=== PATIENT | female | born 1980 | race Caucasian/White ===

== ENCOUNTER 2024-01-20 17:55 | Inpatient (IN) | payer MEDICAID, SELFPAY ==
[2024-01-20] VITALS (15 sets, daily range): BP systolic 41–150; BP diastolic 24–105; PULSE 89–155; RESP 16–18; TEMP 36.3; O2SAT 91–93
--- NOTE | 2024-01-20 17:45 | RT.EKG_ITS ---
APPROVED REPORT Exam: Resting ECG Reason for Exam: sob Patient Location: E HR:95 bpm ECG Measurements Heart Rate 95 AXIS TN 136 P 69 QRSd 93 QRS -12 QT 413 T 26 QTc 521 Conclusion Sinus rhythm 95 normal axis no stemi prolong QTC 521
--- NOTE | 2024-01-20 18:15 | DI.RAD_ITS ---
Exam(s) XR CHEST 2V PA LATERAL EXAM: XR CHEST 2V PA LATERAL CLINICAL HISTORY: COUGH TECHNIQUE: 2D digital imaging was performed. Two views. COMPARISON: No exams were available for comparison FINDINGS: HEART: Normal size. Aorta: Not dilated. PULMONARY VASCULATURE: Normal. MEDIASTINUM: Unremarkable. LUNGS: Clear. PLEURAL SPACE: No pleural effusion or pneumothorax. BONE:Unremarkable for age. SOFT TISSUES: Surgical clips in the left lower neck. IMPRESSION: No acute abnormality. DATA REPOSITORY: RADIATION DOSE DELIVERED:
[2024-01-20 19:39] LABS: Abs Immature Grans 0.11 10^3/uL (0.0-0.06); Absolute Eosinophil Count 0.11 10^3/uL (0.0-0.7); Absolute Monocyte Count 1.19 10^3/uL (0.1-0.8); Basophils % 0.7 %; Eosinophils % 0.9 %; HCT 50.4 % (36.0-46.0); HGB 16.7 g/dL (11.2-15.7); Immature Grans % 0.9 %; Lymphocytes % 11.5 %; MCHC 33.1 % (32.0-36.0); MCV 100 fL (80-95); MPV 9.5 fL (8.0-11.0); Monocytes % 9.7 %; Neutrophils % 76.3 %; Platelet Count 275 10^3/uL (130-400); RBC 5.06 10^6/uL (3.93-5.22); RDW 13.7 % (11.7-14.6); RDW-SD 50.2 fL; WBC 12.22 10^3/uL (4.4-10.8)
[2024-01-20 19:40] LABS: Absolute Basophil Count 0.09 10^3/uL (0.0-0.2); Absolute Lymphocyte Count 1.41 10^3/uL (1.2-3.4); Absolute Neutrophil Count 9.32 10^3/uL (1.2-6.7)
[2024-01-20 19:41] LABS: ESR 10 mm/hr (0-20)
[2024-01-20 20:02] LABS: ALT 33 U/L (14-59); AST 33 U/L (15-37); Albumin 3.3 g/dL (3.4-5.0); Alkaline Phosphatase 239 U/L (46-116); Anion Gap 15.2 mmol/L (3-11); BUN 9 mg/dL (7-18); Bilirubin, Total 1.65 mg/dL (0.2-1.0); C-Reactive Protein 10.82 mg/dL (<or=0.5); CO2 22.8 mmol/L (21.0-32.0); Calcium 9.8 mg/dL (8.5-10.1); Chloride 98 mmol/L (98-107); Glucose 105 mg/dL (74-106); Sodium 136 mmol/L (136-145); Total Protein 8.4 g/dL (6.4-8.2)
[2024-01-20 20:16] LABS: Procalcitonin < 0.10 ng/mL
[2024-01-20] MEDS: diazePAM 5 MG TAB PO (21:17)
[2024-01-20] MEDS: CEFEPIME 2 GM in Normal Saline 100 ML IVPB (21:18)
[2024-01-20 21:46] LABS: ETHANOL BLOOD < 3.0 mg/dL (<10)
--- NOTE | 2024-01-20 22:45 | W.PM.HP.N ---
Date of service: 01/20/24 Time of Service: 22:45 Assessment and Plan Assessment and plan (1) Cellulitis of right lower extremity: Start date: 01/20/24 Status: Acute Assessment and plan: This is a 43-year-old lady recently moved to [place] who has chronic right leg ulcers from an acute DVT with swelling in 2020. She does supplement Unna boots and has not been changing her bandages for weeks. She presented with a very odiferous wound with multiple ulcerations especially over her medial leg and ankle with no swelling or increased warmth but slight erythema. She was initiated on IV antibiotic therapy after blood cultures and will continue wound care. Dr Hill was consulted for surgical evaluation. She will probably does not need wound debridement. 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 She is supposed to be on anticoagulation because of her DVT which was unprovoked but has stopped this over the last several months. Venous Doppler will be performed over her right lower extremity and she should consider reinitiation of anticoagulation therapy with case management to help with her medical care and ability to/medication along with medical care locally. She will continue on IV antibiotic therapy until she wound appears improved and can be converted to oral antibiotics for completion of therapy. She is a full code. (2) Alcohol abuse, daily use: Status: Chronic Assessment and plan: CIWA protocol with oral Ativan. (3) DVT (deep venous thrombosis): Status: Chronic Assessment and plan: Unprovoked in 2020 with chronic anticoagulation initiated but not continued by patient. Venous ultrasound of the right lower extremity and DVT prophylaxis with subcu Lovenox considering oral anticoagulation therapy chronically. He would be a candidate for Eliquis may have a problem for this unless her medical insurance is updated by the care management team. This should be done prior to discharge. 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 (5) Depression: Status: Chronic Assessment and plan: Patient does drink 5 beers daily and is coping poorly with her social situation. She is not on medical therapy. She does have increased anxiety. Is not manifesting suicidal ideation but is neglectful of her health care. Established with local PCP and this should be addressed with possible treatment. Qualifiers: Depression Type: major depressive disorder Major depression recurrence: recurrent Active/Remission status: currently active Major depression episode severity: moderate Qualified Code(s): F33.1 - Major depressive disorder, recurrent, moderate History of Present Illness History of Present Illness Chief Complaint: Wound right lower leg with strong odor. Narrative: This is a 43-year-old female patient who recently moved from [place], after an abrupt separation from her partner to [place] now living with her second cousin and originally being from [place]. She has a chronic ulcer over her right lower extremity below the knee after a DVT in 2019. She was anticoagulation up to the recent months but has not been taking care of herself and not seeing her usual medical care in [place]. She has been using Unna boots that she would self apply since 2019. During her chaotic moved she had been reapplying Unna boot material over the wound because of wetness and oozing. She has not changed her Unna boot for weeks. The ED physician evaluated her for a presentation of shortness of breath but her main complaint is her right lower leg with a the wound which is odiferous and moist with the old bandage. It is only tender to touch and not bleeding or having significant warmth or erythema. She is not diabetic. She does drink alcohol daily at 5 beers a day. She admits to skin changes over her right lower extremity after the DVT with atrophy of the skin and ending with hair loss. He has a previous history of thoracic outlet syndrome over her left upper extremity with swelling of the arm in 2018 prompting surgery which resulted in eventual loss of her left fourth finger amputated at the MCP secondary to ischemia. Upon presentation, the patient had a very strong odor coming from her right leg with a wrappings dirty and moist and many layers were cut off with odiferous wounds cleansed and dressed again with iodoform gauze and loose wrapping. She had left [place] because of this wound and smell according to the ED physician and was prompted by the person she is living with now to be seen today because of the smell of the wound. The patient has been tearful and very anxious about being seen by the ED physician and tearful during our conversation. She was initiated on IV cefepime and vancomycin therapy because of the appearance of the wound with the elevated WBC and CRP. She had no fever or significant warmth or erythema and only tenderness over her wound. Surgical consultation was obtained and Dr. Hill did see the patient's wounds unwrapped when she was admitted to [facility]. He did advise on wound care and agreed with IV antibiotic therapy initially though she may be able to be converted to oral therapy quickly if responding. He would be able to see the patient as an outpatient in his office for wound care chronically. Blood cultures were performed prior to initiation of IV antibiotics. Patient will be on CIWA protocol because of her alcohol use and was given 1 dose of Valium orally in the ED with IV Dilaudid given for pain management with wound changes and cleansing. Her urine drug screen was negative for any illicit drug use and she denies illicit drug use. Patient is a full code. Review of Systems Narrative: 13 point review of systems otherwise unrevealing or stable. Patient is chronically overweight. PFSH All Active Problems (Updated 01/21/24 @ 05:40 by Gallo Robin) Alcohol dependence, daily use (Chronic) Depression (Chronic) DVT (deep venous thrombosis) (Chronic) Alcohol abuse, daily use (Chronic) Cellulitis of right lower extremity (Acute) Social History Smoking/Tobacco Use Status: Current every day Tobacco Type: cigarettes Smoking risk assessment performed?: Yes Alcohol Intake: current Alcohol Intake frequency: 0-2 drinks per day Drug use: Never Substance use type: does not use Housing: house Do you feel safe at home: Yes Do you feel safe in your relationship?: Yes Meds Allergies and Home Medications Allergies Allergy/AdvReac Type Severity Reaction Status Date / Time No Known Allergies Allergy Unverified 01/20/24 18:00 Home Medications ?Medication ?Instructions ?Recorded ?Confirmed ?Type Unknown [No Known Home Meds] 01/20/24 01/20/24 History Exam Narrative Exam Narrative: General: Patient appears moderately anxious and tearful, moderately obese, alert and oriented x 3 and in moderate distress from her social situation and discomfort of her right lower extremity. HEENT: Normocephalic, eyes with pupils equal and react to light symmetrically, extraocular movement intact and sclera anicteric. Oropharynx with what the close and poor dentition. Neck: Supple without JVD. Back: Stooped posture without CVA tenderness. Lungs: Fair aeration clear to auscultation percussion with no focalizing rales or rhonchi. No expiratory wheeze. Breast: Exam deferred. Heart: Regular rate and rhythm with no murmurs gallops appreciated. Abdomen: Obese contour, soft nontender to palpation with no palpable hepatosplenomegaly. Genitalia/rectal: Exam deferred. Skin: Normal color, warm and dry. Chronic skin changes over left upper extremity over the hand mostly with atrophic skin and scarring over the dorsum of her hand with loss of the fourth finger at the MCP with amputation obvious. atrophic, slightly hyperpigmented and slightly erythematous skin over the right lower extremity especially the medial ankle with moist ulcerations which appear to be at least stage II ulcers. These are tender to palpation. Extremities: Chronic skin changes left hand and right lower extremity as above, with 3+ pedis pulse over the right foot, no pitting edema, no clubbing or cyanosis. Neuro: Cranial nerves II through XII grossly intact. No focal motor deficit tremor. Psych: Anxious with fair eye contact and depressed mood. No abnormal thought processes. Remote and recent memory grossly intact. Results Imaging Imaging Studies: EXAM: XR CHEST 2V PA LATERAL CLINICAL HISTORY: COUGH TECHNIQUE: 2D digital imaging was performed. Two views. COMPARISON: No exams were available for comparison FINDINGS: HEART: Normal size. Aorta: Not dilated. PULMONARY VASCULATURE: Normal. MEDIASTINUM: Unremarkable. LUNGS: Clear. PLEURAL SPACE: No pleural effusion or pneumothorax. BONE:Unremarkable for age. SOFT TISSUES: Surgical clips in the left lower neck. IMPRESSION: No acute abnormality. Labs 01/20/24 19:29 01/20/24 19:29 Labs: Laboratory Results - last 24 hr 01/20/24 01/20/24 19:29 19:29 WBC 12.22 H RBC 5.06 Hgb 16.7 H Hct 50.4 H MCV 100 H MCH 33.0 MCHC 33.1 RDW 13.7 Plt Count 275 MPV 9.5 Immature Gran % 0.9 Neutrophils % 76.3 Lymphocytes % 11.5 Monocytes % 9.7 Eosinophils % 0.9 Basophils % 0.7 Nucleated RBC % 0.0 Absolute Neutrophils 9.32 H Absolute Lymphocytes 1.41 Absolute Monocytes 1.19 H Absolute Eosinophils 0.11 Absolute Basophils 0.09 ESR 10 Sodium 136 Potassium 4.0 Chloride 98 Carbon Dioxide 22.8 Anion Gap 15.2 H BUN 9 Creatinine 1.0 Est GFR (CKD-EPI 2020) 70.80 Glucose 105 Calcium 9.8 Total Bilirubin 1.65 H AST 33 ALT 33 Alkaline Phosphatase 239 H C-Reactive Protein 10.82 H Cancelled Total Protein 8.4 H Albumin 3.3 L Procalcitonin < 0.10 Ethyl Alcohol < 3.0 Last Vital Signs Temp 36.3 C L 01/20/24 17:57 Pulse 101 H 01/20/24 22:02 Resp 18 01/20/24 19:32 BP 123/105 H 01/20/24 22:02 Pulse Ox 91 L 01/20/24 22:10 PAWSS Have you Been Recently Intoxicated or Drunk Within the Last 30 days?: Yes Have you Ever Experienced Previous Episodes of Alcohol Withdrawal?: No Have you ever Experienced Withdrawal Seizures?: No Have you ever Experienced Delirium Tremens(DT)s?: No Have you ever undergone Alcohol Rehabilitation Treatment (i.e, inpt ot outpatient treatment programs)?: No Have you ever Experienced Blackouts?: No Have you ever Combined Alcohol with other Downers within the last 90 days?: No Have you ever Combined Alcohol with any other Substance of Abuse during the last 90 days?: No Positive Blood Alcohol level on Presentation? [PCS.BAL]: No Evidence of Increased Autonomic Activity (i.e. HR>120, tremor, sweating, agitation, nausea)?: No Result: 1 Time Spent Time spent with Patient: >75 minutes Time was spent: preparing to see the patient(eg.review tests), obtaining and/or reviewing separately otained hiistory, ordering medications,tests, procedures, referring, communicating with other health foster care case manager, indepentently interpreting results, counseling the patient and care coordination
[2024-01-21] VITALS (21 sets, daily range): BP systolic 85–141; BP diastolic 63–118; PULSE 82–103; RESP 18–29; TEMP 35.4–36.8; O2SAT 83–95
--- NOTE | 2024-01-21 | DI.CT_ITS ---
Exam(s) CT CHEST PE CTA EXAM: CT CHEST PE CTA CLINICAL HISTORY: hypoxic, +DVT. TECHNIQUE: Imaging Protocol: Axial CT angiography was performed with multi-slice acquisition and mu lti-planar and/or 3D reconstructions. Computer aided detection (CAD) was utilized. CONTRAST MATERIAL: Intravenous: Omnipaque 350 contrast volume:99 mL COMPARISON: CR XR CHEST 2V PA LATERAL from 01/20/2024 FINDINGS: Tracheobronchial tree: Patent where visualized. No bronchiectasis. Pulmonary parenchyma: Mild paraseptal emphysematous changes are present. There is a ground-glass sca ttered infiltrate seen predominantly involving the right upper lobe. It is also seen in the right mi ddle, right lower and left lingula. There is a small peripheral infiltrate in the left lung base whi ch may represent atelectasis or possible infarct. Pulmonary Arteries: There are bilateral multifocal pulmonary emboli present. Emboli are seen extendi ng into the distal aspects of both the right and left main pulmonary arteries. There is no saddle em bolus at the bifurcation of the pulmonary artery. Mediastinum and Jeny: There are mildly enlarged mediastinal lymph nodes which may represent reactive lymph nodes. The esophagus is unremarkable. Visualized thyroid gland: Unremarkable. Pleura: No effusion or pneumothorax. Heart: The heart is not dilated. No coronary artery calcifications are seen. No pericardial effusion. The RV to LV ratio is greater than 1 consistent with right heart strain. Aorta: Thoracic aorta non-dilated. No evidence of dissection. Upper abdomen: There is nodularity of the adrenal glands bilaterally. Nonemergent follow-up is ti mmended. Soft tissues: Unremarkable. Bones: Within normal limits for the patient's age. IMPRESSION: 1. Extensive pulmonary embolic disease with pulmonary emboli seen in the distal aspects of both the r ight and left main pulmonary arteries. 2. RV to LV ratio greater than 1 consistent with right heart strain. 3. Multifocal ground-glass opacities in the lungs. Infection or atelectasis. 4. Peripheral consolidation in the left lower lobe. Atelectasis versus infarct. 5. Findings were discussed with Denise Morales at 3:10 p.m. on 01/21/2024. RADIATION DOSE DELIVERED: 314.99mGy.cm Total DLP DATA REPOSITORY: All CT scans at this facility are submitted to the National Radiology Data Registry (NRDR) Dose Index Registry (DIR) with the [employer] (A[employer]). RADIATION OPTIMIZATION: All CT scans at this facility use at least one of these dose optimization te chniques: automated exposure control; mA and/or kV adjustment per patient size (includes targeted exa ms where dose is matched to clinical indication); or iterative reconstruction.
--- NOTE | 2024-01-21 00:01 | ED.GENADUL_ITS ---
Discharge Plan Disposition Patient Disposition: Admit to [facility] Condition: Fair Discharge Details Chief Complaint: SOB Clinical Impression: Cellulitis of right lower extremity, Alcohol abuse, daily use Primary Care Provider: None,None ED Provider: Jazz Ortiz Home Meds and New Rx's Prescriptions: No Action No Known Home Meds HPI General Date/Time Provider Initiated Documentation: 01/20/24 18:22 . Limitations to Documentation: no limitations . Information obtained by: patient . HPI Narrative: 43-year-old female with past medical history of daily alcohol abuse presents for evaluation of shortness of breath. She reports that over the last 2 weeks she has been noticing some shortness of breath, worse with exertion or when she goes up and down the stairs. She states that she has not had any cough or chest pain. When asked about leg swelling, the patient states that that is actually the reason that she came to the emergency department. She reports a wound on her right lower extremity that has been wrapped in a dressing that she has not removed for 5 days. She states that the wound has been ongoing for quite some time but has not sought care for it. Related Data Home Medications ?Medication ?Instructions ?Recorded ?Confirmed Unknown [No Known Home Meds] 01/20/24 01/20/24 Allergies Allergy/AdvReac Type Severity Reaction Status Date / Time No Known Allergies Allergy Unverified 01/20/24 18:00 General Stated Complaint: SOB MYNOR: 3 Exam Narrative Exam Narrative: Review of Systems: All systems reviewed & are unremarkable except as noted in HPI and below Well-developed, no acute distress NCAT tachycardia Unlabored respiratory effort, CTAB Nondistended abdomen soft n/t RLE with incredibly foul smell of Pseudomonas, wrapped in a fairly tight dressing with Coban. There is a near circumferential pressure wound that is at the proximal calf, on the medial aspect there is also some ulceration, the skin is hyperpigmented and generally distorted, sensation is intact, there is a 2+ DP sallow appearance to skin, mild jaundice no focal neurologic deficits tearful, anxious Course Vital Signs Vital signs: Vital Signs Temperature 36.3 C L 01/20/24 17:57 Pulse 100 H 01/20/24 17:57 Respiratory Rate 16 01/20/24 17:57 Blood Pressure 112/60 01/20/24 17:57 Pulse Oximetry 92 01/20/24 17:57 Temperature 36.3 C L 01/20/24 17:57 Pulse 101 H 01/20/24 22:02 Respiratory Rate 18 01/20/24 19:32 Respiratory Effort Normal 01/20/24 19:32 Respiratory Depth Normal 01/20/24 19:32 Respiratory Pattern Normal 01/20/24 19:32 Blood Pressure 123/105 H 01/20/24 22:02 Blood Pressure Mean 110 01/20/24 22:02 Pulse Oximetry 91 L 01/20/24 22:10 Pain Level 0 01/20/24 17:57 Lab/Test Results Lab/Test Results: Laboratory Tests Range/Units 01/20/24 01/20/24 19:29 19:29 WBC (4.4-10.8) 10^3/uL 12.22 H RBC (3.93-5.22) 10^6/uL 5.06 Hgb (11.2-15.7) g/dL 16.7 H Hct (36.0-46.0) % 50.4 H MCV (80-95) fL 100 H MCH (27.0-33.0) pg 33.0 MCHC (32.0-36.0) % 33.1 RDW (11.7-14.6) % 13.7 Plt Count (130-400) 10^3/uL 275 MPV (8.0-11.0) fL 9.5 Immature Gran % % 0.9 Neutrophils % % 76.3 Lymphocytes % % 11.5 Monocytes % % 9.7 Eosinophils % % 0.9 Basophils % % 0.7 Nucleated RBC % (0.0-0.3) % 0.0 Absolute Neutrophils (1.2-6.7) 10^3/uL 9.32 H Absolute Lymphocytes (1.2-3.4) 10^3/uL 1.41 Absolute Monocytes (0.1-0.8) 10^3/uL 1.19 H Absolute Eosinophils (0.0-0.7) 10^3/uL 0.11 Absolute Basophils (0.0-0.2) 10^3/uL 0.09 ESR (0-20) mm/hr 10 Sodium (136-145) mmol/L 136 Potassium (3.5-5.1) mmol/L 4.0 Chloride (98-107) mmol/L 98 Carbon Dioxide (21.0-32.0) mmol/L 22.8 Anion Gap (3-11) mmol/L 15.2 H BUN (7-18) mg/dL 9 Creatinine (0.55-1.02) mg/dL 1.0 Est GFR (CKD-EPI 2020) (mL/min/1.73m2) 70.80 Glucose (74-106) mg/dL 105 Calcium (8.5-10.1) mg/dL 9.8 Total Bilirubin (0.2-1.0) mg/dL 1.65 H AST (15-37) U/L 33 ALT (14-59) U/L 33 Alkaline Phosphatase (46-116) U/L 239 H C-Reactive Protein (<or=0.5) mg/dL 10.82 H Cancelled Total Protein (6.4-8.2) g/dL 8.4 H Albumin (3.4-5.0) g/dL 3.3 L Procalcitonin ng/mL < 0.10 Ethyl Alcohol (<10) mg/dL < 3.0 Medical Decision Making Emergent evaluation of right lower extremity wound. The patient has neglected this ongoing issue for quite some time. It is obvious that it smells of Pseudomonas. Initial differential includes cellulitis, deep space infection, I doubt a necrotizing infection or an osteomyelitis. The patient does not have a known history of diabetes. It seems that she has a fairly significant alcohol abuse history with daily alcohol use which I suspect is what is been preventing her from seeking medical care. Lab work was obtained. There is a slight leukocytosis of 12. Hemoconcentrated hemoglobin at 16 and 50. No thrombocytopenia. There is a mild left shift. Electrolytes without significant derangement. Mild anion gap which I suspect is from some lack of liver clearance. As she has a mild elevation in her bilirubin. CRP is elevated but procalcitonin and ESR within normal limits. Will give vancomycin and cefepime. This wound is extensive he is aggressive wound care, possible debridement and I feel at this point needs IV antibiotic therapy. Discussed with hospitalist and will admit. Quality:SDOH Health Related Social Needs: No Data to Display PFSH All Active Problems (Updated 01/21/24 @ 00:07 by Jazz Ortiz MD) Alcohol abuse, daily use (Chronic) Cellulitis of right lower extremity (Acute) Social History Smoking/Tobacco Use Status: Current every day Tobacco Type: cigarettes Smoking risk assessment performed?: Yes Alcohol Intake: current Alcohol Intake frequency: 0-2 drinks per day Drug use: Never Substance use type: does not use Housing: house Do you feel safe at home: Yes Do you feel safe in your relationship?: Yes PAWSS Have you Been Recently Intoxicated or Drunk Within the Last 30 days?: Yes Have you Ever Experienced Previous Episodes of Alcohol Withdrawal?: No Have you ever Experienced Withdrawal Seizures?: No Have you ever Experienced Delirium Tremens(DT)s?: No Have you ever undergone Alcohol Rehabilitation Treatment (i.e, inpt ot outpatient treatment programs)?: No Have you ever Experienced Blackouts?: No Have you ever Combined Alcohol with other Downers within the last 90 days?: No Have you ever Combined Alcohol with any other Substance of Abuse during the last 90 days?: No Positive Blood Alcohol level on Presentation? [PCS.BAL]: No Evidence of Increased Autonomic Activity (i.e. HR>120, tremor, sweating, agitation, nausea)?: No Result: 1
[2024-01-21 00:10] LABS: Bilirubin Moderate (Negative); Blood Trace-intact (Negative); Clarity Clear (Clear); Glucose Negative (Negative); Ketones 40 mg/dL (Negative); Leukocyte Esterase Negative (Negative); Nitrite Positive (Negative); Specific Gravity >= 1.030 (1.005-1.025); pH 5.5 (5-8)
[2024-01-21 00:13] LABS: Bacteria Few HPF (Negative); C & S Indicated? No; Casts Negative LPF (Negative); Crystals Negative HPF (Negative); Epithelial Cells Few HPF (Negative); Mucus Negative (Negative)
[2024-01-21 00:25] LABS: *AMPHETAMINES SCREEN URINE Negative (Negative); *BARBITURATES SCREEN URINE Negative (Negative); *BENZODIAZEPINES SCREEN URINE Positive (Negative); Cannabinoids THC Negative (Negative); Cocaine Screen,Urine Negative (Negative); METHADONE URINE SCREEN Negative (Negative); OPIATES URINE SCREEN Negative (Negative)
[2024-01-21 00:26] LABS: Tricyclic Antidepressants Negative (Negative)
--- NOTE | 2024-01-21 01:28 | SCONE_ITS ---
Date of service: 01/21/24 Time of Service: 01:28 Assessment and Plan Assessment and plan (1) Cellulitis of right lower extremity: Status: Acute Assessment and plan: With regards to the right lower extremity, I think she has cellulitis related to her chronic lower extremity wounds. With better more attentive wound care, and probably a short course of antibiotics for cellulitis, this should start to improve. For now, I would wash the extremity with warm soapy water every day, and use the Medihoney on the wounds and some clean gauze dressing over top of that. I would change this at least once a day. She has a new ultrasound that shows deep vein thrombosis through the right lower extremity. Given the history, I do wonder if there is some type of hypercoagulable condition here. She will probably require lifelong anticoagulation, but all of that workup could certainly be conducted as an outpatient assuming she is able to establish primary care, and continue with the workup. Given the skin changes on her cheeks, I wonder if something like lupus is contributing to her vascular problems History of Present Illness History of Present Illness Chief Complaint: Right lower extremity wound Narrative: Ericka is 43 years old. She comes to the emergency department complaining of some shortness of breath. During the course of the evaluation, she was found to have chronic wounds on the right lower extremity that were basically dressed with a Unna boot type dressing. It is unclear exactly how long the dressing have been in place. She has been using Unna boot therapy for a few years. She tells me that her sister is a nurse, who is helped with some of the bandage changes. As best I can understand, she developed the wounds as a result of chronic venous insufficiency that may be related to DVT. She thinks she was diagnosed with a DVT around 2019 and was treated for some time with therapeutic anticoagulation, but she stopped taking that because she could no longer afford it. She also reports a past medical history that sounds like thoracic outlet syndrome on the left side. 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 It is hard to decipher whether or not that occurred before or after her surgery for the thoracic outlet syndrome. Review of Systems Constitutional Constitutional: Reports fatigue, Denies fever(s) and Reports weakness Eyes Eyes: Reports system reviewed and no additional complaints, except as documented ENT Ears, Nose, Mouth, and Throat: Reports nasal congestion Cardiovascular Cardiovascular: Denies chest pain and Reports dyspnea Respiratory Respiratory: Reports cough and Reports dyspnea Gastrointestinal Gastrointestinal: Denies abdominal pain, Denies nausea and Denies vomiting Genitourinary Genitourinary: Reports system reviewed and no additional complaints, except as documented Musculoskeletal Musculoskeletal: Reports back pain and Reports myalgias Neurologic Neurologic: Reports weakness Psychiatric Psychiatric: Reports abnormal sleep pattern and Reports anxiety Endocrine Endocrine: Reports fatigue Hematologic/Lymphatic Hematologic/Lymphatic: Denies easy bleeding and Denies easy bruising PFSH All Active Problems (Updated 01/21/24 @ 05:40 by Gallo Robin) Alcohol dependence, daily use (Chronic) Depression (Chronic) DVT (deep venous thrombosis) (Chronic) Alcohol abuse, daily use (Chronic) Cellulitis of right lower extremity (Acute) Social History Smoking/Tobacco Use Status: Current every day Tobacco Type: cigarettes Smoking risk assessment performed?: Yes Alcohol Intake: current Alcohol Intake frequency: 0-2 drinks per day Drug use: Never Substance use type: does not use Housing: house Do you feel safe at home: Yes Do you feel safe in your relationship?: Yes Exam Const General: cooperative, comfortable and no acute distress Nutritional Appearance: overweight Orientation: alert, awake and oriented x3 HENMT Other: She has the appearance of a malar rash across her cheeks Extrem Other: Right lower extremity is mildly swollen compared to the left. There are some superficial chronic appearing wounds on the right lower extremity that seem consistent with venous insufficiency. There is palpable dorsalis pedis and posterior tibial pulses Results Last Vital Signs Temp 97.3 F L 01/20/24 17:57 Pulse 101 H 01/20/24 22:02 Resp 18 01/20/24 19:32 BP 123/105 H 01/20/24 22:02 Pulse Ox 91 L 01/20/24 22:10 Labs 01/21/24 06:15 01/21/24 06:15 Labs: Laboratory Results - last 24 hr 01/20/24 01/20/24 01/21/24 19:29 19:29 00:00 WBC 12.22 H RBC 5.06 Hgb 16.7 H Hct 50.4 H MCV 100 H MCH 33.0 MCHC 33.1 RDW 13.7 Plt Count 275 MPV 9.5 Immature Gran % 0.9 Neutrophils % 76.3 Lymphocytes % 11.5 Monocytes % 9.7 Eosinophils % 0.9 Basophils % 0.7 Nucleated RBC % 0.0 Absolute Neutrophils 9.32 H Absolute Lymphocytes 1.41 Absolute Monocytes 1.19 H Absolute Eosinophils 0.11 Absolute Basophils 0.09 ESR 10 Sodium 136 Potassium 4.0 Chloride 98 Carbon Dioxide 22.8 Anion Gap 15.2 H BUN 9 Creatinine 1.0 Est GFR (CKD-EPI 2020) 70.80 Glucose 105 Calcium 9.8 Total Bilirubin 1.65 H AST 33 ALT 33 Alkaline Phosphatase 239 H C-Reactive Protein 10.82 H Cancelled Total Protein 8.4 H Albumin 3.3 L Procalcitonin < 0.10 Urine Color Yellow Urine Clarity Clear Urine pH 5.5 Ur Specific Rhod[place]ron >= 1.030 H Urine Protein 30 H Urine Ketones 40 H Urine Blood Trace-intact H Urine Nitrite Positive H Urine Bilirubin Moderate H Urine Urobilinogen 2.0 H Ur Leukocyte Esterase Negative Urine RBC 3-5 H Urine WBC 3-5 Ur Epithelial Cells Few Urine Crystals Negative Urine Bacteria Few Urine Casts Negative Urine Mucus Negative Ur Culture Indicated? No Urine Glucose Negative Urine Opiates Screen Negative Urine Methadone Screen Negative Ur Barbiturates Screen Negative Ur Tricyclics Screen Negative Ur Amphetamines Screen Negative U Benzodiazepines Scrn Positive A Urine Cocaine Screen Negative Ur THC Screen Negative Ethyl Alcohol < 3.0
[2024-01-21] MEDS: HYDROmorphone 1 MG/ML SYR 0.5 MG IVP (02:12)
[2024-01-21] MEDS: ELECTROLYTE-R SOLUTION 1,000 ML 150 ML IV ×3 (03:27→23:44)
--- NOTE | 2024-01-21 06:17 | W.PC.ACHO ---
Registration Status: Primary Language: Preferred Language: ED Information & Data Chief Complaint SOB 01/21/24 00:03 Triage Note SOB, petechia noted on face, 01/20/24 17:57 tuesday night s/s started, been getting worse since then. pt reports she usually drinks everyday, last drink tuesday. Most Recent Vital Signs Temperature 35.9 C L 01/21/24 00:46 Pulse 91 H 01/21/24 00:46 Respiratory Rate 18 01/21/24 00:46 Respiratory Effort Short of Breath 01/21/24 00:46 Respiratory Depth Normal 01/21/24 00:46 Respiratory Pattern Normal 01/21/24 00:46 Blood Pressure 104/72 01/21/24 00:46 Blood Pressure Mean 110 01/20/24 22:02 Pulse Oximetry 89 L 01/21/24 00:46 Pain Level 0 01/21/24 00:46 Comment satting 87% o RA placed pn 3L NC 01/21/24 00:46 Allergies No Known Allergies Allergy (Unverified 01/20/24 18:00) Active Medications Generic Name Dose Route Start Last Admin Trade Name Norm PRN Reason Stop Dose Admin Parenteral Electrolytes 1,000 mls @ 150 mls/hr 01/21/24 01:45 01/21/24 03:27 Normosol-R Or Plasmalyte-A IV 150 mls/hr INFUSION CARI Administration IV IV Catheter Type [Right Saline Lock Antecubital] IV Catheter Gauge [Right 20 Antecubital] Diet Orders Category Date Time Status Regular/Normal [DIET] Nutrition 01/21/24 Breakfast Active Diagnostics 01/21/24 01/21/24 01/20/24 Range/Units 05:35 00:00 19:29 WBC Pending (4.4-10.8) 10^3/uL RBC Pending (3.93-5.22) 10^6/uL Hgb Pending (11.2-15.7) g/dL Hct Pending (36.0-46.0) % MCV Pending (80-95) fL MCH Pending (27.0-33.0) pg MCHC Pending (32.0-36.0) % RDW Pending (11.7-14.6) % Plt Count Pending (130-400) 10^3/uL MPV Pending (8.0-11.0) fL Immature Gran % % Neutrophils % % Lymphocytes % % Monocytes % % Eosinophils % % Basophils % % Nucleated RBC % (0.0-0.3) % Absolute Neutrophils (1.2-6.7) 10^3/uL Absolute Lymphocytes (1.2-3.4) 10^3/uL Absolute Monocytes (0.1-0.8) 10^3/uL Absolute Eosinophils (0.0-0.7) 10^3/uL Absolute Basophils (0.0-0.2) 10^3/uL ESR (0-20) mm/hr Sodium Pending (136-145) mmol/L Potassium Pending (3.5-5.1) mmol/L Chloride Pending (98-107) mmol/L Carbon Dioxide Pending (21.0-32.0) mmol/L Anion Gap Pending (3-11) mmol/L BUN Pending (7-18) mg/dL Creatinine Pending (0.55-1.02) mg/dL Est GFR (CKD-EPI 2020) Pending (mL/min/1.73m2) Glucose Pending (74-106) mg/dL Calcium Pending (8.5-10.1) mg/dL Phosphorus Pending Magnesium Pending Total Bilirubin Pending (0.2-1.0) mg/dL AST Pending (15-37) U/L ALT Pending (14-59) U/L Alkaline Phosphatase Pending (46-116) U/L C-Reactive Protein Cancelled (<or=0.5) mg/dL Total Protein Pending 8.4 H (6.4-8.2) g/dL Albumin Pending 3.3 L (3.4-5.0) g/dL Procalcitonin < 0.10 ng/mL Urine Color Yellow (Yellow) Urine Clarity Clear (Clear) Urine pH 5.5 (5-8) Ur Specific [place] >= 1.030 H (1.005-1.025) Urine Protein 30 H (Neg-Trace) mg/dL Urine Ketones 40 H (Negative) mg/dL Urine Blood Trace-intact H (Negative) Urine Nitrite Positive H (Negative) Urine Bilirubin Moderate H (Negative) Urine Urobilinogen 2.0 H (Up to 0.2) mg/dL Ur Leukocyte Esterase Negative (Negative) Urine RBC 3-5 H (0-2) HPF Urine WBC 3-5 (0-5) HPF Ur Epithelial Cells Few (Negative) HPF Urine Crystals Negative (Negative) HPF Urine Bacteria Few (Negative) HPF Urine Casts Negative (Negative) LPF Urine Mucus Negative (Negative) Ur Culture Indicated? No Urine Glucose Negative (Negative) mg/dL Random Vancomycin Pending Urine Opiates Screen Negative (Negative) Urine Methadone Screen Negative (Negative) Ur Barbiturates Screen Negative (Negative) Ur Tricyclics Screen Negative (Negative) Ur Amphetamines Screen Negative (Negative) U Benzodiazepines Scrn Positive A (Negative) Urine Cocaine Screen Negative (Negative) Ur THC Screen Negative (Negative) Ethyl Alcohol < 3.0 (<10) mg/dL 01/20/24 Range/Units 19:29 WBC 12.22 H (4.4-10.8) 10^3/uL RBC 5.06 (3.93-5.22) 10^6/uL Hgb 16.7 H (11.2-15.7) g/dL Hct 50.4 H (36.0-46.0) % MCV 100 H (80-95) fL MCH 33.0 (27.0-33.0) pg MCHC 33.1 (32.0-36.0) % RDW 13.7 (11.7-14.6) % Plt Count 275 (130-400) 10^3/uL MPV 9.5 (8.0-11.0) fL Immature Gran % 0.9 % Neutrophils % 76.3 % Lymphocytes % 11.5 % Monocytes % 9.7 % Eosinophils % 0.9 % Basophils % 0.7 % Nucleated RBC % 0.0 (0.0-0.3) % Absolute Neutrophils 9.32 H (1.2-6.7) 10^3/uL Absolute Lymphocytes 1.41 (1.2-3.4) 10^3/uL Absolute Monocytes 1.19 H (0.1-0.8) 10^3/uL Absolute Eosinophils 0.11 (0.0-0.7) 10^3/uL Absolute Basophils 0.09 (0.0-0.2) 10^3/uL ESR 10 (0-20) mm/hr Sodium 136 (136-145) mmol/L Potassium 4.0 (3.5-5.1) mmol/L Chloride 98 (98-107) mmol/L Carbon Dioxide 22.8 (21.0-32.0) mmol/L Anion Gap 15.2 H (3-11) mmol/L BUN 9 (7-18) mg/dL Creatinine 1.0 (0.55-1.02) mg/dL Est GFR (CKD-EPI 2020) 70.80 (mL/min/1.73m2) Glucose 105 (74-106) mg/dL Calcium 9.8 (8.5-10.1) mg/dL Phosphorus Magnesium Total Bilirubin 1.65 H (0.2-1.0) mg/dL AST 33 (15-37) U/L ALT 33 (14-59) U/L Alkaline Phosphatase 239 H (46-116) U/L C-Reactive Protein 10.82 H (<or=0.5) mg/dL Total Protein (6.4-8.2) g/dL Albumin (3.4-5.0) g/dL Procalcitonin ng/mL Urine Color (Yellow) Urine Clarity (Clear) Urine pH (5-8) Ur Specific Sutton (1.005-1.025) Urine Protein (Neg-Trace) mg/dL Urine Ketones (Negative) mg/dL Urine Blood (Negative) Urine Nitrite (Negative) Urine Bilirubin (Negative) Urine Urobilinogen (Up to 0.2) mg/dL Ur Leukocyte Esterase (Negative) Urine RBC (0-2) HPF Urine WBC (0-5) HPF Ur Epithelial Cells (Negative) HPF Urine Crystals (Negative) HPF Urine Bacteria (Negative) HPF Urine Casts (Negative) LPF Urine Mucus (Negative) Ur Culture Indicated? Urine Glucose (Negative) mg/dL Random Vancomycin Urine Opiates Screen (Negative) Urine Methadone Screen (Negative) Ur Barbiturates Screen (Negative) Ur Tricyclics Screen (Negative) Ur Amphetamines Screen (Negative) U Benzodiazepines Scrn (Negative) Urine Cocaine Screen (Negative) Ur THC Screen (Negative) Ethyl Alcohol (<10) mg/dL Intake and Output - 24 Hour Total 01/20/24 17:55 thru 01/20/24 21:50 Intake Total 100 Balance 100 Weight 90.718 kg Intake: IV 100 Falls Risk Assessment History of Falls No History 01/21/24 00:46 Contributing Factors No Factors 01/20/24 19:33 Ambulatory Aids Independent 01/21/24 00:46 Tubes/Lines W/no contributing factors 01/21/24 00:46 Gait Evaluation No gait disturbance 01/21/24 00:46 Cognition No cognitive impairment 01/21/24 00:46 Fall Total Score 10 01/21/24 00:46 Level of Risk Standard/Low Risk 01/21/24 00:46 Problems (Last Reviewed 01/21/24 @ 00:03 by Jazz Ortiz MD) Alcohol dependence, daily use (Chronic) Depression (Chronic) DVT (deep venous thrombosis) (Chronic) Alcohol abuse, daily use (Chronic) Cellulitis of right lower extremity (Acute) v v v v v v v v v Sending and/or Receiving Nurses: Please use comment section below to note any information pertinent to the patient hand-off not included above. Information / Comments: Per Og PORRAS pt arrived with RLE knee/ankle cellulitis, pt kept bandage on leg without cleansing wound for 5 weeks. VSS, satting 90% on RA, elevated CRP and WBC. Hx of ETOH abuse on CIWA. A&Ox4, walkcortes bustamante. Report received from:Og PORRAS at 0032
[2024-01-21 06:34] LABS: HCT 43.8 % (36.0-46.0); HGB 14.5 g/dL (11.2-15.7); MCH 32.8 pg (27.0-33.0); MCHC 33.1 % (32.0-36.0); MCV 99 fL (80-95); MPV 9.4 fL (8.0-11.0); Platelet Count 231 10^3/uL (130-400); RBC 4.42 10^6/uL (3.93-5.22); RDW 13.7 % (11.7-14.6); RDW-SD 50.4 fL; WBC 9.27 10^3/uL (4.4-10.8)
[2024-01-21] MEDS: CEFEPIME 2 GM in Normal Saline 100 ML IVPB ×3 (06:44→22:58)
[2024-01-21 06:57] LABS: Vancomycin, Random 10.4 ug/mL
[2024-01-21 07:10] LABS: ALT 26 U/L (14-59); AST 35 U/L (15-37); Albumin 2.7 g/dL (3.4-5.0); Alkaline Phosphatase 199 U/L (46-116); Anion Gap 10.6 mmol/L (3-11); BUN 9 mg/dL (7-18); Bilirubin, Total 1.64 mg/dL (0.2-1.0); CO2 24.4 mmol/L (21.0-32.0); CREATININE 0.9 mg/dL (0.55-1.02); Chloride 101 mmol/L (98-107); Estimated GFR 80.34 (mL/min/1.73m2); Glucose 103 mg/dL (74-106); Magnesium 2.3 mg/dL (1.8-2.4); PHOSPHORUS 3.9 mg/dL (2.6-4.7); Potassium 4.1 mmol/L (3.5-5.1); Sodium 136 mmol/L (136-145); Total Protein 6.9 g/dL (6.4-8.2)
--- NOTE | 2024-01-21 08:00 | DI.RAD_ITS ---
Exam(s) XR TIB/FIB RT EXAM: XR TIB/FIB RT CLINICAL HISTORY: Chronic wounds of the right calf elevated alk phos. TECHNIQUE: 2D digital imaging was performed of the right tibia and fibula. Three images were obtaine d. AP and lateral views were obtained. COMPARISON: No exams were available for comparison FINDINGS: BONES: No acute fracture is present. No bony destructive lesion is seen. Visualized portion of knee a nd ankle joints are unremarkable. There is a large plantar calcaneal spur. SOFT TISSUE: There is soft tissue swelling of the lower leg particularly medially. No soft tissue ga s. IMPRESSION: No acute fracture or dislocation or evidence of osteomyelitis. DATA REPOSITORY: RADIATION DOSE DELIVERED:
--- NOTE | 2024-01-21 08:00 | DI.US_ITS ---
Exam(s) US LOWER EXTREMITY VENOUS RT EXAM: US LOWER EXTREMITY VENOUS RT CLINICAL HISTORY: Previous DVT with patient off anticoagulation TECHNIQUE: Right lower extremity venous ultrasound performed using grayscale, color-flow, and spectr al Doppler analysis. COMPARISON: No exams were available for comparison FINDINGS: There is hypoechoic thrombus extending from the right common femoral vein through the deep and femora l veins and into the popliteal vein. The posterior tibial veins are patent. There is hypoechoic thr ombus seen in the greater saphenous vein measuring 3.3 cm in length. There is no evidence of a Solares cyst. The soft tissues are unremarkable. IMPRESSION: 1. Extensive right lower extremity DVT involving the right common femoral vein, the right deep in fem oral veins and the right popliteal vein. 2. Superficial thrombophlebitis. DATA REPOSITORY:
[2024-01-21] MEDS: Enoxaparin 40 MG/0.4 ML SYR SC (08:50)
[2024-01-21] MEDS: Thiamine 100 MG TAB PO (08:51)
[2024-01-21] MEDS: Normal Saline Flush 10 ML SYR IVP ×3 (08:51→20:13)
[2024-01-21] MEDS: Folic Acid 1 MG TAB PO (08:51)
[2024-01-21] MEDS: Multivitamin TAB 1 TAB PO (08:51)
[2024-01-21 09:05] LABS: HCG Qual (Urine) Negative
--- NOTE | 2024-01-21 09:42 | NUR.NOTE ---
Access chart to reconcile EKG orders with ED EKGs in [facility]. Duplicate order cancelled. Nursing Note:
--- NOTE | 2024-01-21 10:58 | DI.VRAD_ITS ---
PROCEDURE INFORMATION: Exam: US Duplex Right Lower Extremity Veins, Limited Exam date and time: 01/21/2024 10:06 AM Age: 43 years old Clinical indication: Other: Previous dvt with patient off anticoagulants TECHNIQUE: Imaging protocol: Real-time duplex ultrasound of the right extremity with 2-D diggs scale, color Doppler flow and spectral waveform analysis including responses to compression and other maneuvers (when performed) with image documentation. Limited exam was focused on the right lower extremity veins. COMPARISON: No relevant prior studies available. FINDINGS: Right deep veins: There is a partially occlusive thrombus in the right common femoral vein, right deep femoral vein, and an occlusive thrombus in the right femoral vein, and right popliteal vein.. Superficial veins: There is a partially occlusive thrombus in the right greater saphenous vein for a 3.3 cm segment in the distal thigh. Soft tissues: Unremarkable. IMPRESSION: DVT in the right common femoral vein, right deep femoral vein, right femoral vein and right popliteal vein. Dictated and Authenticated by: Que Mccarthy MD. Ordering:DIANA Holder MD
--- NOTE | 2024-01-21 11:04 | DI.VRAD_ITS ---
PROCEDURE INFORMATION: Exam: XR Right Tibia and Fibula Exam date and time: 01/21/2024 10:42 AM Age: 43 years old Clinical indication: Other: Chronic wounds of the right calf elevated alk phos TECHNIQUE: Imaging protocol: Radiologic exam of the right tibia and fibula. Views: 2 views. COMPARISON: US LOWER EXTREMITY VENOUS RT 01/21/2024 10:06 AM FINDINGS: Bones/joints: Inferior calcaneal spur. Achilles enthesophyte. Soft tissues: There is soft tissue swelling overlying the ankle joint. IMPRESSION: No acute fracture or dislocation. No soft tissue emphysema. No radiographic changes of osteomyelitis. Dictated and Authenticated by: Que Mccarthy MD. Ordering:PARMJIT Trujillo MD
--- NOTE | 2024-01-21 12:34 | PHA.REVIEW2 ---
Pharmacy Admission Review Admission Clinical Review Admission Pharmacy Review: Cellulitis of right lower extremity (Acute) No Known Allergies Allergy (Unverified 01/20/24 18:00) Resuscitation Status Full Code Height 5 ft 6 in Weight 97.1 kg Pharmacy Admission Review Renal Dosing Renal Dosing: BUN 9 mg/dL (7-18) 01/21/24 06:15 Creatinine 0.9 mg/dL (0.55-1.02) 01/21/24 06:15 Medications needing adjustments: Reviewed (CrCl 92.74 mL/min) List of meds needing interventions: Current medications are okay Anticoagulation Anticoagulation: Hgb 14.5 g/dL (11.2-15.7) D 01/21/24 06:15 Hct 43.8 % (36.0-46.0) 01/21/24 06:15 Plt Count 231 10^3/uL (130-400) 01/21/24 06:15 Creatinine 0.9 mg/dL (0.55-1.02) 01/21/24 06:15 DVT Prophylaxis: Reviewed (Hgb decreased from 16.7) Medications: Enoxaparin (40mg daily) Relevant Labs Relevant Labs: ESR 10 mm/hr (0-20) 01/20/24 19:29 Sodium 136 mmol/L (136-145) 01/21/24 06:15 Potassium 4.1 mmol/L (3.5-5.1) 01/21/24 06:15 Chloride 101 mmol/L (98-107) 01/21/24 06:15 Phosphorus 3.9 mg/dL (2.6-4.7) 01/21/24 06:15 Magnesium 2.3 mg/dL (1.8-2.4) 01/21/24 06:15 C-Reactive Protein 10.82 mg/dL (<or=0.5) H 01/20/24 19:29 C-Reactive Protein Cancelled 01/20/24 19:29 Electrolytes, C-Reactive P, ESR: Reviewed Cardiac Review Cardiac Review: Blood Pressure 116/97 1102 Blood Pressure 120/87 0738 Blood Pressure 85/63 0737 Blood Pressure 104/72 0046 BP, HR, EF%: Reviewed (HR WNL, Ox 91 - oxygen flow rate 3) QTc Review QTc: Reviewed (521 from 01/20/24) IV to PO Switch IV Medications: Reviewed (cefepime and vancomycin) Home Meds Home Med List reviewed: Reviewed (no known home meds) Current Meds Current Medication Order Review: Intervened Comments: changed vancomycin to premix bag Pharmacy Antibiotic Review Relevant Labs: Relevant Labs 01/20/24 01/20/24 19:29 19:29 C-Reactive Protein Cancelled 10.82 H Procalcitonin < 0.10 WBC 9.27 10^3/uL (4.4-10.8) 01/21/24 06:15 Procalcitonin < 0.10 ng/mL 01/20/24 19:29 Temperature 35.4 C Temperature 36.4 C Temperature 35.9 C Pharmacy Antibiotic Activity: C/S review and Reviewed, no change Comments: Patient is on vancomycin and cefepime, day 1, for cellulitis on right lower extremity. Random vancomycin level was 10.4 this morning at 0615. Based on level continued dose of 1000mg q12h with predicted AUC of 504 and trough of 16.2. Called nursing this morning to get test done on patient in order to use premix bags (test was negative). Will order another level if there are any changes in kidney function. WBC decreased from 12.22 and currently no cultures pending.
--- NOTE | 2024-01-21 13:43 | INITIAL_ITS ---
Date of service: 01/21/24 Time of Service: 13:44 Care Management Initial Assmt Initial Assessment Reason for Hospitalization: cellulitis RLE Functional Status/Living Situation Patient Presentation: Ericka was sitting up in bed when CM met with her; her nurses were in the room starting some medication. Ericka stated that she moved back to [place] mid December, although she is from [place]; she is staying with her cousin, Kayla. CM discussed her need for insurance and a PCP, as she recently relocated. CM will send a referral to [facility] for insurance support to connect her with [facility] for access to care. Ericka reported that she currently does not have a job, therefore her income should not be a barrier to obtaining [facility]. CM also advised her that she will be set up with a hospital follow up with the provider cost control supervisor at the time of her admission, which was the [facility] (Dr. Regan). Ericka was pleasant and appreciative of the support, as she expressed concern about not having insurance. Per MD, Ericka is not yet medically cleared, as an ultrasound revealed a DVT, and a CT revealed a PE. She is being treated with IV heparin, per report. CM will continue to follow. Town of Residence: [place] Resides with: Other (Ericka is staying with her cousin currently) Natural Supports: friends/family in the area Employment Status: Unemployed Instrumental Activities of Daily Living (ADLs): Independent Medications Medication Management: No Issues/Barriers identified Advance Directives Advance Directives: Do you have an Advance Directive: N 01/20/24 17:55 AD On File at [facility]: N 01/20/24 17:57 Date Asked 01/20/24 01/20/24 17:57 AD Date Reviewed COLST On File at [facility] No 01/20/24 17:57 COLST Date Scanned Code Status Resuscitation Status Full Code Insurance Coverage/Financial Issues Insurance: no current insurance Financial Issues: CM will send a referral to [facility] for insurance navigation for access to care Care Team Visit Care Team Role Provider Type None None Primary Care Provider NON-[facility] STAFF PHYSICIAN Ronnie Hill MD Other Providers [facility] STAFF PHYSICIAN Jazz Ortiz MD Emergency Provider [facility] STAFF PHYSICIAN Gallo Robin Admit Provider NON-[facility] STAFF PHYSICIAN Attending Provider Discharge Potential Discharge Needs: PCP F/U Appt (will need cost control supervisor PCP appt for hospital follow up) Anticipated Barriers to Discharge: SDOH (no insurance, no access to medications needed for safe discharge) Transportation: [facility] Plan: Anticipate Ericka will return to the community once medically cleared. She currently does not have health insurance, therefore does not have prescription coverage. Per MD, she requires a prescription for Eliquis for a safe discharge. CM will send a referral to [facility] for insurance navigation and access to care. Ericka will transport via private vehicle by [facility] vs family/friend. She will follow up with the cost control supervisor provider and will follow her discharge plan of care. CM will continue to follow. PFSH All Active Problems (Updated 01/21/24 @ 16:51 by Petar Rodriguez MD) Acute respiratory failure with hypoxia (Acute) Pulmonary emboli (Chronic) Alcohol dependence, daily use (Chronic) Depression (Chronic) DVT (deep venous thrombosis) (Chronic) Alcohol abuse, daily use (Chronic) Cellulitis of right lower extremity (Acute) Social History Smoking/Tobacco Use Status: Current every day Tobacco Type: cigarettes Smoking risk assessment performed?: Yes Alcohol Intake: current Alcohol Intake frequency: 0-2 drinks per day Drug use: Never Substance use type: does not use Housing: house Do you feel safe at home: Yes Do you feel safe in your relationship?: Yes SDOH(Care Management) Screening Will the Patient Participate in the Screening?: Yes Do you worry about having a steady place to live?: no Problems where you live: no known problems In the past 12 months, have you had to go without electric, gas, oil or water in your home?: no Have you or anyone in your house had to go without enough food to eat?: no Has lack of transportation kept you from medical appointments or from doing things needed for daily living?: no Has anyone in your support network made you feel unsafe for any reason?: no Social Determinants of Health Comments(SDOH Details): Tuesday night last drink 1 beer. smokes 1/2 PPD
[2024-01-21] MEDS: Omnipaque 350 MG/ML 100 ML BTL IJ (14:52)
[2024-01-21] MEDS: Normal Saline - Diluent 50 ML VIAL IJ (14:52)
[2024-01-21 16:22] LABS: PTT Activated 32.5 sec (23.6-32.8)
[2024-01-21 16:27] LABS: NT-proBNP 1454 pg/mL (<300)
[2024-01-21 16:32] LABS: Troponin I 101 ng/L (<or=51)
--- NOTE | 2024-01-21 16:42 | W.PM.PROGNOT ---
Date of Service Date of service: 01/21/24 Time of Service: 16:42 Assessment and Plan Assessment and plan (1) Pulmonary emboli: Status: Chronic Assessment and plan: -Upon admission there was initial concern for patient having had DVT which was confirmed with ultrasound showing extensive right lower extremity DVT involving the right common femoral vein, right deep femoral veins and right popliteal vein -Patient was initially on room air however, upon discovering she was placed on 3 L nasal cannula, CT angio was ordered which showed extensive pulmonary embolic disease with pulmonary emboli seen in the distal aspects of both right and left main pulmonary arteries, RV to LV ratio greater than 1 consistent with right heart strain, multifocal groundglass opacities consistent with infection or atelectasis, and peripheral consolidation of the left lower lobe concerning for atelectasis versus infarct -Case was discussed with [facility] PE fellow who agreed with initiating heparin drip, and checking proBNP and troponin, however unless other were significantly elevated, patient would not meet criteria for intervention -Will continue heparin drip as recommended for 48 hours prior to transitioning to p.o. Eliquis -Will follow-up repeat troponin and reach back out to [facility] if significantly elevated -If patient were to experience respiratory collapse requiring significant increase in oxygen requirement, intubation, or, hemodynamically stable, would reach back out to [facility] for consideration of transfer and emergent intervention (2) Acute respiratory failure with hypoxia: Status: Acute Assessment and plan: - Secondary to PEs as noted above -Currently on 3 L nasal cannula to maintain oxygen saturation greater than 92% -If patient's oxygen requirement significantly increased she will be transferred to the ICU for closer monitoring -Wean O2 as tolerated (3) DVT (deep venous thrombosis): Status: Chronic Assessment and plan: - 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 who was started on anticoagulation but this was not continued by the patient -Because of the pulmonary emboli and acute hypoxic respiratory failure as noted above Qualifiers: DVT location: lower extremity Affected thrombotic vein of extremity: other lower extremity vein Chronicity: chronic Laterality: right Qualified Code(s): I82.591 - Chronic embolism and thrombosis of other specified deep vein of right lower extremity (4) Cellulitis of right lower extremity: Start date: 01/20/24 Status: Acute Assessment and plan: - Cellulitis without sepsis of the right lower extremity -On vancomycin and cefepime, will continue -Follow blood culture results (5) Alcohol abuse, daily use: Status: Chronic Assessment and plan: CIWA protocol with oral Ativan. (6) Alcohol dependence, daily use: Status: Chronic Assessment and plan: CIWA protocol with Ativan. (7) Depression: Status: Chronic Assessment and plan: Patient does drink 5 beers daily and is coping poorly with her social situation. She is not on medical therapy. She does have increased anxiety. Is not manifesting suicidal ideation but is neglectful of her health care. Established with local PCP and this should be addressed with possible treatment. Qualifiers: Depression Type: major depressive disorder Major depression recurrence: recurrent Active/Remission status: currently active Major depression episode severity: moderate Qualified Code(s): F33.1 - Major depressive disorder, recurrent, moderate Subjective Subjective Interval history since last seen: Patient understands that her cellulitis is getting better. But upon discovering that she was hypoxic further investigation was done and she was found to have significant clot burden due to PE secondary to right lower extremity DVT. She understands her current diagnoses and plan which was discussed with [facility], to initiate anticoagulation. On that she understands her current diagnosis/medical condition other than some mild chest discomfort with significant inspiration she has no other complaints or concerns at this time. Exam Narrative Exam Narrative: Mildly anxious appearing female laying in bed and in no acute distress, ANO x 4, heart regular rhythm, lungs clear to auscultation bilaterally, abdomen soft, nontender, nondistended Objective Last Vital Signs Temp 97.3 F L 01/21/24 15:31 Pulse 96 H 01/21/24 15:31 Resp 18 01/21/24 15:31 BP 125/84 01/21/24 15:31 Pulse Ox 94 01/21/24 15:31 Laboratory Results - last 24 hr 01/20/24 01/20/24 01/21/24 19:29 19:29 00:00 WBC 12.22 H RBC 5.06 Hgb 16.7 H Hct 50.4 H MCV 100 H MCH 33.0 MCHC 33.1 RDW 13.7 Plt Count 275 MPV 9.5 Immature Gran % 0.9 Neutrophils % 76.3 Lymphocytes % 11.5 Monocytes % 9.7 Eosinophils % 0.9 Basophils % 0.7 Nucleated RBC % 0.0 Absolute Neutrophils 9.32 H Absolute Lymphocytes 1.41 Absolute Monocytes 1.19 H Absolute Eosinophils 0.11 Absolute Basophils 0.09 ESR 10 APTT Sodium 136 Potassium 4.0 Chloride 98 Carbon Dioxide 22.8 Anion Gap 15.2 H BUN 9 Creatinine 1.0 Est GFR (CKD-EPI 2020) 70.80 Glucose 105 Calcium 9.8 Phosphorus Magnesium Total Bilirubin 1.65 H AST 33 ALT 33 Alkaline Phosphatase 239 H Troponin I C-Reactive Protein 10.82 H Cancelled NT-Pro-B Natriuret Pep Total Protein 8.4 H Albumin 3.3 L Procalcitonin < 0.10 Urine Color Yellow Urine Clarity Clear Urine pH 5.5 Ur Specific [place] >= 1.030 H Urine Protein 30 H Urine Ketones 40 H Urine Blood Trace-intact H Urine Nitrite Positive H Urine Bilirubin Moderate H Urine Urobilinogen 2.0 H Ur Leukocyte Esterase Negative Urine RBC 3-5 H Urine WBC 3-5 Ur Epithelial Cells Few Urine Crystals Negative Urine Bacteria Few Urine Casts Negative Urine Mucus Negative Ur Culture Indicated? No Urine Glucose Negative Urine HCG, Qual Random Vancomycin Urine Opiates Screen Negative Urine Methadone Screen Negative Ur Barbiturates Screen Negative Ur Tricyclics Screen Negative Ur Amphetamines Screen Negative U Benzodiazepines Scrn Positive A Urine Cocaine Screen Negative Ur THC Screen Negative Ethyl Alcohol < 3.0 01/21/24 01/21/24 01/21/24 06:15 08:25 15:58 WBC 9.27 RBC 4.42 Hgb 14.5 D Hct 43.8 MCV 99 H MCH 32.8 MCHC 33.1 RDW 13.7 Plt Count 231 MPV 9.4 Immature Gran % Neutrophils % Lymphocytes % Monocytes % Eosinophils % Basophils % Nucleated RBC % Absolute Neutrophils Absolute Lymphocytes Absolute Monocytes Absolute Eosinophils Absolute Basophils ESR APTT 32.5 Sodium 136 Potassium 4.1 Chloride 101 Carbon Dioxide 24.4 Anion Gap 10.6 BUN 9 Creatinine 0.9 Est GFR (CKD-EPI 2020) 80.34 Glucose 103 Calcium 9.0 Phosphorus 3.9 Magnesium 2.3 Total Bilirubin 1.64 H AST 35 ALT 26 Alkaline Phosphatase 199 H Troponin I 101 H* C-Reactive Protein NT-Pro-B Natriuret Pep 1454 H Total Protein 6.9 Albumin 2.7 L Procalcitonin Urine Color Urine Clarity Urine pH Ur Specific [place] Urine Protein Urine Ketones Urine Blood Urine Nitrite Urine Bilirubin Urine Urobilinogen Ur Leukocyte Esterase Urine RBC Urine WBC Ur Epithelial Cells Urine Crystals Urine Bacteria Urine Casts Urine Mucus Ur Culture Indicated? Urine Glucose Urine HCG, Qual Negative Random Vancomycin 10.4 Urine Opiates Screen Urine Methadone Screen Ur Barbiturates Screen Ur Tricyclics Screen Ur Amphetamines Screen U Benzodiazepines Scrn Urine Cocaine Screen Ur THC Screen Ethyl Alcohol PAWSS Have you Been Recently Intoxicated or Drunk Within the Last 30 days?: Yes Have you Ever Experienced Previous Episodes of Alcohol Withdrawal?: No Have you ever Experienced Withdrawal Seizures?: No Have you ever Experienced Delirium Tremens(DT)s?: No Have you ever undergone Alcohol Rehabilitation Treatment (i.e, inpt ot outpatient treatment programs)?: No Have you ever Experienced Blackouts?: No Have you ever Combined Alcohol with other Downers within the last 90 days?: No Have you ever Combined Alcohol with any other Substance of Abuse during the last 90 days?: No Positive Blood Alcohol level on Presentation? [PCS.BAL]: No Evidence of Increased Autonomic Activity (i.e. HR>120, tremor, sweating, agitation, nausea)?: No Result: 1 Time Spent with Patient Time Spent with Patient: >50 minutes Time was spent: preparing to see the patient(eg.review tests), obtaining and/or reviewing separately otained hiistory, ordering medications,tests, procedures, referring, communicating with other health career development coordinator/teacher, indepentently interpreting results, counseling the patient and care coordination
[2024-01-21] MEDS: Heparin in 0.45% NaCl 25,000 UNIT/250 ML BAG 17.5 UNIT IVINF (17:22)
--- NOTE | 2024-01-21 17:45 | RT.EKG_ITS ---
APPROVED REPORT Exam: Resting ECG Reason for Exam: Prolonged QTC Patient Location: I HR:86 bpm ECG Measurements Heart Rate 86 AXIS HI 134 P 67 QRSd 95 QRS -7 QT 501 T -3 QTc 600 Conclusion Sinus rhythm...normal P axis, V-rate 50- 99 Prolonged QT interval...QTc >510mS
[2024-01-21 18:41] LABS: Troponin I 114 ng/L (<or=51)
[2024-01-21] MEDS: VANCOMYCIN/WATER (PEG) 1 GM/200 ML BAG IVPB (20:13)
--- NOTE | 2024-01-21 22:03 | NUR.NOTE ---
Nursing Note: Gave report to Beverly RN at 2142, pt transferred via wheelchair to ICU with all belongings at 2203.
[2024-01-21 23:54] LABS: PTT Activated 71.8 sec (23.6-32.8)
[2024-01-22] VITALS (76 sets, daily range): BP systolic 108–131; BP diastolic 77–91; PULSE 72–91; RESP 16–32; TEMP 36.6–37.7; O2SAT 88–96
[2024-01-22] MEDS: Acetaminophen 325 MG TAB PO (01:09)
[2024-01-22] MEDS: Heparin in 0.45% NaCl 25,000 UNIT/250 ML BAG 17.5 UNIT IVINF ×2 (02:36→17:25)
[2024-01-22] MEDS: CEFEPIME 2 GM in Normal Saline 100 ML IVPB ×3 (05:55→22:21)
[2024-01-22 06:50] LABS: PTT Activated 76.8 sec (23.6-32.8)
--- NOTE | 2024-01-22 07:50 | PGE_ITS ---
Date of Service Date of service: 01/22/24 Time of Service: 07:50 Assessment and Plan Assessment and plan (1) Pulmonary emboli: Status: Chronic Assessment and plan: -Upon admission DVT suspected, RLE ultrasound showing extensive right lower extremity DVT involving the right common femoral vein, right deep femoral veins and right popliteal vein -Patient was initially on room air however, upon discovering she was placed on 3 L nasal cannula, CTA was ordered which showed extensive pulmonary embolic disease with pulmonary emboli seen in the distal aspects of both right and left main pulmonary arteries, RV to LV ratio greater than 1 consistent with right heart strain, multifocal groundglass opacities consistent with infection or atelectasis, and peripheral consolidation of the left lower lobe concerning for atelectasis versus infarct -Case was discussed with [facility] PE fellow who agreed with initiating heparin drip, and checking proBNP and troponin, however unless other were significantly elevated, patient would not meet criteria for intervention -Will continue heparin drip as recommended for 48 hours prior to transitioning to p.o. Eliquis -Troponin mildly elevated, will follow-up repeat troponin until trending down. -If patient were to experience respiratory collapse requiring significant increase in oxygen requirement, intubation, or, hemodynamically stable, would reach back out to [facility] for consideration of transfer and emergent intervention. She has been stable overnight. -stopping IV fluids Qualifiers: Pulmonary embolism type: other Chronicity: acute Acute cor pulmonale presence: with acute cor pulmonale Qualified Code(s): I26.09 - Other pulmonary embolism with acute cor pulmonale (2) Acute respiratory failure with hypoxia: Status: Acute Assessment and plan: -Secondary to PEs as noted above -Currently on 3 L nasal cannula to maintain oxygen saturation greater than 92% -If patient's oxygen requirement significantly increased she will be transferred to the ICU for closer monitoring -Wean O2 as tolerated (3) DVT (deep venous thrombosis): Status: Chronic Assessment and plan: -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 who was started on anticoagulation but this was not continued by the patient -See pulmonary emboli above -Ambulation associated with better outcomes once on therapy, okay to walk Qualifiers: DVT location: lower extremity Affected thrombotic vein of extremity: other lower extremity vein Chronicity: chronic Laterality: right Qualified Code(s): I82.591 - Chronic embolism and thrombosis of other specified deep vein of right lower extremity (4) Cellulitis of right lower extremity: Start date: 01/20/24 Status: Acute Assessment and plan: -Cellulitis without sepsis of the right lower extremity -On vancomycin and cefepime, will continue -Follow blood culture results (5) Alcohol abuse, daily use: Status: Chronic Assessment and plan: -CIWA protocol with oral Ativan, not significantly scoring. -Will review treatment options for AUD before discharge. (6) Depression: Status: Chronic Assessment and plan: Patient does drink 5 beers daily and is coping poorly with her social situation. She is not on medical therapy. She does have increased anxiety. Is not manifesting suicidal ideation but is neglectful of her health care. Established with local PCP and this should be addressed with possible treatment, defer for now. Qualifiers: Depression Type: major depressive disorder Major depression recurrence: recurrent Active/Remission status: currently active Major depression episode severity: moderate Qualified Code(s): F33.1 - Major depressive disorder, recurrent, moderate Subjective Subjective Patient reports: no new complaints, tolerating a regular diet and voiding w/o difficulty; denies blood in stool, nausea, vomiting or fever Interval history since last seen: 24 hr: DVT/PEs documented, starting on heparin ggt around 5pm 01/20 She feels about the same, mild SOB. She hasn't noted any bleeding on heparin. She has been on apixaban and warfarin in the past. No chest pain. Not dizzy. Exam Narrative Exam Narrative: Mildly anxious appearing female laying in bed and in no acute distress, ANO x 4, heart regular rhythm, lungs clear to auscultation bilaterally except slight peripheral wheeze on left. Abdomen soft, nontender, nondistended. Extremities with trace edema on left, 1+ and slightly pitting on right. Warm, cap refill <1 second in toes, no pain with ROM ankles. Gonzalez bandage on right not taken down (see RN notes re: wound). Objective Last Vital Signs Temp 36.9 C 01/22/24 04:30 Pulse 77 01/22/24 04:30 Resp 18 01/22/24 04:30 BP 117/82 01/22/24 04:30 Pulse Ox 93 01/22/24 04:30 Laboratory Results - last 24 hr 01/21/24 01/21/24 01/21/24 08:25 15:58 18:15 APTT 32.5 Troponin I 101 H* 114 H* NT-Pro-B Natriuret Pep 1454 H Urine HCG, Qual Negative Add-On Test Request 01/21/24 01/21/24 01/22/24 23:30 Unknown 06:30 APTT 71.8 H 76.8 H Troponin I NT-Pro-B Natriuret Pep Urine HCG, Qual Add-On Test Request Cancelled PAWSS Have you Been Recently Intoxicated or Drunk Within the Last 30 days?: Yes Have you Ever Experienced Previous Episodes of Alcohol Withdrawal?: No Have you ever Experienced Withdrawal Seizures?: No Have you ever Experienced Delirium Tremens(DT)s?: No Have you ever undergone Alcohol Rehabilitation Treatment (i.e, inpt ot outpatient treatment programs)?: No Have you ever Experienced Blackouts?: No Have you ever Combined Alcohol with other Downers within the last 90 days?: No Have you ever Combined Alcohol with any other Substance of Abuse during the last 90 days?: No Positive Blood Alcohol level on Presentation? [PCS.BAL]: No Evidence of Increased Autonomic Activity (i.e. HR>120, tremor, sweating, agitation, nausea)?: No Result: 1 Time Spent with Patient Time Spent with Patient: 35-49 minutes Time was spent: preparing to see the patient(eg.review tests), obtaining and/or reviewing separately otained hiistory, ordering medications,tests, procedures, referring, communicating with other health sub acute care nurse, indepentently interpreting results, counseling the patient and care coordination
[2024-01-22] MEDS: VANCOMYCIN/WATER (PEG) 1 GM/200 ML BAG IVPB ×2 (08:02→20:37)
[2024-01-22] MEDS: Multivitamin TAB 1 TAB PO (08:23)
[2024-01-22] MEDS: Thiamine 100 MG TAB PO (08:23)
[2024-01-22] MEDS: Folic Acid 1 MG TAB PO (08:23)
[2024-01-22 10:45] LABS: Troponin I 75 ng/L (<or=51)
[2024-01-22] MEDS: Normal Saline Flush 10 ML SYR IVP ×3 (20:37→23:04)
[2024-01-23] VITALS (93 sets, daily range): BP systolic 114–135; BP diastolic 78–92; PULSE 66–98; RESP 11–47; TEMP 36.3–37.2; O2SAT 87–96
[2024-01-23 06:24] LABS: Abs Immature Grans 0.04 10^3/uL (0.0-0.06); Absolute Basophil Count 0.06 10^3/uL (0.0-0.2); Absolute Eosinophil Count 0.12 10^3/uL (0.0-0.7); Absolute Lymphocyte Count 1.66 10^3/uL (1.2-3.4); Absolute Monocyte Count 0.83 10^3/uL (0.1-0.8); Absolute Neutrophil Count 3.38 10^3/uL (1.2-6.7); HCT 38.7 % (36.0-46.0); HGB 12.6 g/dL (11.2-15.7); Immature Grans % 0.7 %; Lymphocytes % 27.3 %; MCH 32.6 pg (27.0-33.0); MCHC 32.6 % (32.0-36.0); MCV 100 fL (80-95); MPV 10.2 fL (8.0-11.0); Monocytes % 13.6 %; Neutrophils % 55.4 %; Platelet Count 263 10^3/uL (130-400); RBC 3.87 10^6/uL (3.93-5.22); RDW 13.5 % (11.7-14.6); RDW-SD 49.8 fL; WBC 6.09 10^3/uL (4.4-10.8)
[2024-01-23 06:39] LABS: PTT Activated 58.5 sec (23.6-32.8)
[2024-01-23] MEDS: CEFEPIME 2 GM in Normal Saline 100 ML IVPB ×3 (06:44→22:35)
[2024-01-23 06:46] LABS: BUN 5 mg/dL (7-18); CREATININE 0.7 mg/dL (0.55-1.02); Chloride 105 mmol/L (98-107); Estimated GFR 108.62 (mL/min/1.73m2); Glucose 87 mg/dL (74-106); Potassium 3.4 mmol/L (3.5-5.1); Sodium 138 mmol/L (136-145)
[2024-01-23] MEDS: Normal Saline Flush 10 ML SYR IVP ×4 (06:51→22:40)
[2024-01-23] MEDS: Thiamine 100 MG TAB PO (07:46)
[2024-01-23] MEDS: Multivitamin TAB 1 TAB PO (07:46)
[2024-01-23] MEDS: Folic Acid 1 MG TAB PO (07:46)
[2024-01-23] MEDS: Apixaban 5 MG TAB 10 MG PO ×2 (07:47→20:51)
[2024-01-23] MEDS: VANCOMYCIN/WATER (PEG) 1 GM/200 ML BAG IVPB (07:49)
--- NOTE | 2024-01-23 08:11 | PGE_ITS ---
Date of Service Date of service: 01/23/24 Time of Service: 08:11 Assessment and Plan Assessment and plan (1) Pulmonary emboli: Status: Chronic Assessment and plan: -Upon admission DVT suspected, RLE ultrasound showing extensive right lower extremity DVT involving the right common femoral vein, right deep femoral veins and right popliteal vein -Patient was initially on room air however, upon discovering she was placed on 3 L nasal cannula, CTA was ordered which showed extensive pulmonary embolic disease with pulmonary emboli seen in the distal aspects of both right and left main pulmonary arteries, RV to LV ratio greater than 1 consistent with right heart strain, multifocal groundglass opacities consistent with infection or atelectasis, and peripheral consolidation of the left lower lobe concerning for atelectasis versus infarct -Case was discussed with [facility] PE fellow 01/20 who agreed with initiating heparin drip, and checking proBNP and troponin, however unless other were significantly elevated, patient would not meet criteria for intervention -Will transition heparine drip to apixaban today 01/22 -Troponin mildly elevated when PE diagnosed, trending down yesterday -Stable, but still requiring oxygen. Qualifiers: Pulmonary embolism type: other Chronicity: acute Acute cor pulmonale presence: with acute cor pulmonale Qualified Code(s): I26.09 - Other pulmonary embolism with acute cor pulmonale (2) Acute respiratory failure with hypoxia: Status: Acute Assessment and plan: -Secondary to PEs as noted above -Continues on 3 L nasal cannula to maintain oxygen saturation greater than 92% -Encourage IS -Wean O2 as tolerated (3) DVT (deep venous thrombosis): Status: Chronic Assessment and plan: -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 who was started on anticoagulation but this was not continued by the patient -See pulmonary emboli above -Ambulation associated with better outcomes once on therapy, encourage ambulatoin -compression therapy on right leg indefinitely to limit post-thrombotic pain once wound is dry enough. -Recurrent VTE, Dr. Hill raised concern of lupus, malar rash vs plethora from alcohol, at this point defer rheumatologic work up to outpatient. Qualifiers: DVT location: lower extremity Affected thrombotic vein of extremity: other lower extremity vein Chronicity: chronic Laterality: right Qualified Code(s): I82.591 - Chronic embolism and thrombosis of other specified deep vein of right lower extremity (4) Cellulitis of right lower extremity: Start date: 01/20/24 Status: Acute Assessment and plan: -Cellulitis without sepsis of the right lower extremity -Concern for pseudomonas clinically on admission. -On vancomycin and cefepime, improving. We don't have cultures. WBC improving. Will stop vancomycin today, continue cefepime for pseudomonal coverage. (5) Alcohol abuse, daily use: Status: Chronic Assessment and plan: -CIWA protocol with oral Ativan, not significantly scoring. -We discussed this today, she does not think her drinking is a problem, enjoys it, but accepts the level (a few beers a day) is unhealthy and she states she will think about it. (6) Depression: Status: Chronic Assessment and plan: Concern for depression but complicated by acute illness, alcohol use, and social stressors of recent move and end of relationship. She has a stable place to stay with her cousin, grew up in [place] and has family here. Struggling with sleep as well. Will offer therapy prior to discharge with PCP follow up. Okay to offer zolpidem while inpatient but I wouldn't use as outpatient with alcohol use. Qualifiers: Depression Type: major depressive disorder Major depression recurrence: recurrent Active/Remission status: currently active Major depression episode severity: moderate Qualified Code(s): F33.1 - Major depressive disorder, recurrent, moderate (7) Hypokalemia: Status: Acute Assessment and plan: mild, replace orally Subjective Subjective Patient reports: no new complaints, tolerating a regular diet and voiding w/o difficulty; denies diarrhea, blood in stool, nausea, vomiting or fever Interval history since last seen: 24 hr: no events, not scoring on CIWA She is still SOB with activity. Didn't sleep well last night. Just a lot on her mind. No chest pain. No bleeding noted. Exam Narrative Exam Narrative: Comfortable appearing female laying in bed and in no acute distress, ANO x 4, heart regular rhythm, lungs clear to auscultation bilaterally, normal effort at rest, no wheeze. Abdomen soft, nontender, nondistended. Extremities with trace edema on left, 1+ and slightly pitting on right, RLE hyperpigmented. Warm, cap refill <1 second in toes, no pain with ROM ankles. RLE wound dressed, clean with minimal drainage on dressing, no redness spreading from edge of wound. Objective Last Vital Signs Temp 36.3 C L 01/23/24 07:35 Pulse 77 01/23/24 07:35 Resp 22 01/23/24 07:35 BP 115/78 01/23/24 07:35 Pulse Ox 93 01/23/24 07:35 Laboratory Results - last 24 hr 01/22/24 01/23/24 10:15 05:50 WBC 6.09 RBC 3.87 L Hgb 12.6 Hct 38.7 MCV 100 H MCH 32.6 MCHC 32.6 RDW 13.5 Plt Count 263 MPV 10.2 Immature Gran % 0.7 Neutrophils % 55.4 Lymphocytes % 27.3 Monocytes % 13.6 Eosinophils % 2.0 Basophils % 1.0 Nucleated RBC % 0.0 Absolute Neutrophils 3.38 Absolute Lymphocytes 1.66 Absolute Monocytes 0.83 H Absolute Eosinophils 0.12 Absolute Basophils 0.06 APTT 58.5 H Sodium 138 Potassium 3.4 L Chloride 105 Carbon Dioxide 22.0 Anion Gap 11.0 BUN 5 L Creatinine 0.7 Est GFR (CKD-EPI 2020) 108.62 Glucose 87 Calcium 9.0 Troponin I 75 H* PAWSS Have you Been Recently Intoxicated or Drunk Within the Last 30 days?: Yes Have you Ever Experienced Previous Episodes of Alcohol Withdrawal?: No Have you ever Experienced Withdrawal Seizures?: No Have you ever Experienced Delirium Tremens(DT)s?: No Have you ever undergone Alcohol Rehabilitation Treatment (i.e, inpt ot outpatient treatment programs)?: No Have you ever Experienced Blackouts?: No Have you ever Combined Alcohol with other Downers within the last 90 days?: No Have you ever Combined Alcohol with any other Substance of Abuse during the last 90 days?: No Positive Blood Alcohol level on Presentation? [PCS.BAL]: No Evidence of Increased Autonomic Activity (i.e. HR>120, tremor, sweating, agitation, nausea)?: No Result: 1 Time Spent with Patient Time Spent with Patient: 35-49 minutes Time was spent: preparing to see the patient(eg.review tests), obtaining and/or reviewing separately otained hiistory, ordering medications,tests, procedures, referring, communicating with other health career manager, indepentently interpreting results, counseling the patient and care coordination
[2024-01-23] MEDS: Potassium Chloride 20 MEQ TABCR 40 MEQ PO (08:38)
--- NOTE | 2024-01-23 11:49 | PDOC.CMPRO ---
Date of service: 01/23/24 Time of Service: 11:49 Care Management Progress Note Progress Note Text Progress Note Text: Ericka was not in her room when CM attempted to meet with her this afternoon. Per RN, she is doing well, and is taking a shower. JEAN spoke to Jett at [facility] this morning, who stated that she would contact Ericka this afternoon. Jett followed up to report that she and Ericka have completed the [facility] application, which is pending, and Jett will follow up with the application tomorrow, understanding the importance of Ericka having insurance in place prior to discharge. CM will continue to follow. Discharge Potential Discharge Needs: PCP F/U Appt (stock and station agent provider) and Other (insurance, access to care) Anticipated Barriers to Discharge: Other (lack of insurance, [facility] working on it) Patient/Family Education Needs: Review discharge instructions, discuss Ask Me Three Transportation: Private vehicle Plan: Anticipate Ericka will return to the community once medically cleared. She currently does not have health insurance, therefore does not have prescription coverage. Per MD, she requires a prescription for Eliquis for a safe discharge. CM sent a referral to [facility] for insurance navigation and access to care. Ericka will transport via private vehicle by [facility] vs family/friend. She will follow up with the stock and station agent provider and will follow her discharge plan of care. CM will continue to follow. SDOH(Care Management) Screening Will the Patient Participate in the Screening?: Yes Do you worry about having a steady place to live?: no Problems where you live: no known problems In the past 12 months, have you had to go without electric, gas, oil or water in your home?: no Have you or anyone in your house had to go without enough food to eat?: no Has lack of transportation kept you from medical appointments or from doing things needed for daily living?: no Has anyone in your support network made you feel unsafe for any reason?: no Social Determinants of Health Comments(SDOH Details): Tuesday night last drink 1 beer. smokes 1/2 PPD
--- NOTE | 2024-01-23 16:25 | W.PM.PROGNOT ---
Date of Service Date of service: 01/23/24 Time of Service: 16:25 Assessment and Plan Assessment and plan (1) Edema of right lower leg due to venous stasis: Status: Acute (2) Venous stasis: Status: Acute (3) Atherosclerosis: Status: Acute (4) Smoker: Status: Acute (5) Venous insufficiency of right leg: Status: Acute (6) Thrombophlebitis leg superficial: Status: Acute Subjective Subjective Interval history since last seen: Pt has mild edema of RLE. She does have some coolness/cyanosis in her R foot that resolves w/ flexing toes. She has PT/DP by doppler. ulcers x5 They are clean and do not require debridment. No signs of cellulitis at this time. pt is on abx US IMPRESSION: 1. Extensive right lower extremity DVT involving the right common femoral vein, the right deep in femoral veins and the right popliteal vein. 2. Superficial thrombophlebitis. hig risk for athersclerosis and PAD -currently on DOAC for DVT/PE plan: Medihoney and compression. wound care orders written encourage walking +smoker check THOMAS's albumin 2.5 Objective Last Vital Signs Temp 36.5 C 01/23/24 12:33 Pulse 76 01/23/24 12:32 Resp 24 01/23/24 14:30 BP 114/90 01/23/24 12:33 Pulse Ox 87 L 01/23/24 14:30 Laboratory Results - last 24 hr 01/23/24 01/23/24 05:50 19:00 WBC 6.09 RBC 3.87 L Hgb 12.6 Hct 38.7 MCV 100 H MCH 32.6 MCHC 32.6 RDW 13.5 Plt Count 263 MPV 10.2 Immature Gran % 0.7 Neutrophils % 55.4 Lymphocytes % 27.3 Monocytes % 13.6 Eosinophils % 2.0 Basophils % 1.0 Nucleated RBC % 0.0 Absolute Neutrophils 3.38 Absolute Lymphocytes 1.66 Absolute Monocytes 0.83 H Absolute Eosinophils 0.12 Absolute Basophils 0.06 APTT 58.5 H Sodium 138 Potassium 3.4 L Chloride 105 Carbon Dioxide 22.0 Anion Gap 11.0 BUN 5 L Creatinine 0.7 Est GFR (CKD-EPI 2020) 108.62 Glucose 87 Calcium 9.0 Vancomycin Trough Cancelled PAWSS Have you Been Recently Intoxicated or Drunk Within the Last 30 days?: Yes Have you Ever Experienced Previous Episodes of Alcohol Withdrawal?: No Have you ever Experienced Withdrawal Seizures?: No Have you ever Experienced Delirium Tremens(DT)s?: No Have you ever undergone Alcohol Rehabilitation Treatment (i.e, inpt ot outpatient treatment programs)?: No Have you ever Experienced Blackouts?: No Have you ever Combined Alcohol with other Downers within the last 90 days?: No Have you ever Combined Alcohol with any other Substance of Abuse during the last 90 days?: No Positive Blood Alcohol level on Presentation? [PCS.BAL]: No Evidence of Increased Autonomic Activity (i.e. HR>120, tremor, sweating, agitation, nausea)?: No Result: 1 Time Spent with Patient Time Spent with Patient: <25 minutes Time was spent: preparing to see the patient(eg.review tests), obtaining and/or reviewing separately otained hiistory, ordering medications,tests, procedures, referring, communicating with other health palliative care nurse practitioner, indepentently interpreting results, counseling the patient, care coordination and other
[2024-01-24] VITALS (33 sets, daily range): BP systolic 93–132; BP diastolic 68–89; PULSE 64–94; RESP 13–36; TEMP 36.1–36.9; O2SAT 87–96
[2024-01-24] MEDS: CEFEPIME 2 GM in Normal Saline 100 ML IVPB ×3 (06:45→22:20)
[2024-01-24 06:46] LABS: Anion Gap 9.6 mmol/L (3-11); BUN 5 mg/dL (7-18); CO2 21.4 mmol/L (21.0-32.0); CREATININE 0.7 mg/dL (0.55-1.02); Calcium 9.1 mg/dL (8.5-10.1); Chloride 107 mmol/L (98-107); Estimated GFR 108.62 (mL/min/1.73m2); Glucose 91 mg/dL (74-106); Potassium 3.7 mmol/L (3.5-5.1); Sodium 138 mmol/L (136-145)
[2024-01-24 06:48] LABS: Hemoglobin A1C 4.7 % (<5.7)
[2024-01-24 06:59] LABS: Calculated LDL 86 mg/dL (<100); Cholesterol 136 mg/dL (<200); HDL Cholesterol 39 mg/dL (40-60); Triglyceride 59 mg/dL (<150)
[2024-01-24] MEDS: Thiamine 100 MG TAB PO (07:56)
[2024-01-24] MEDS: Apixaban 5 MG TAB 10 MG PO ×2 (07:56→20:05)
[2024-01-24] MEDS: Folic Acid 1 MG TAB PO (07:56)
[2024-01-24] MEDS: Multivitamin TAB 1 TAB PO (07:56)
[2024-01-24] MEDS: Normal Saline Flush 10 ML SYR IVP ×2 (07:58→20:06)
--- NOTE | 2024-01-24 10:34 | W.PM.PROGNOT ---
Date of Service Date of service: 01/24/24 Time of Service: 10:34 Assessment and Plan Assessment and plan (1) Edema of right lower leg due to venous stasis: Status: Acute Assessment and plan: Ulcers/wounds are not painful at this time. Will continue with medihoney and dressings. Wounds are clean. No signs or symptoms of infection. Recommend daily dressing changes. Cellulitis is resolved Antibiotics: Maxipime. Started 11/20. She has received 4 doses. Recommend continued dose on 11/24 and then discontinuing antibiotics (2) Venous stasis: Status: Acute (3) Atherosclerosis: Status: Acute (4) Smoker: Status: Acute (5) Venous insufficiency of right leg: Status: Acute (6) Thrombophlebitis leg superficial: Status: Acute Subjective Subjective Interval history since last seen: Arrive with Ericka resting comfortably in bed. She states that her respiratory status feels like it's improving. However with activity she feels SOB with short distances between the bed and commode. Exam Const General: cooperative, healthy appearing and comfortable Orientation: alert and oriented x3 Resp Effort & Inspection: normal respiratory effort, no cough and labored (after transfer to and from [facility]. ) Skin Other: Superior Lower Leg- Numerous superficial skin ulcerations. Inferior Lower Leg- - MidCalf 1.5 cm x 1.5cm -Lower Calf 3 cm x 2 cm Medihoney was applied followed by non-adherent curlex and tape. THOMAS R: 1.15 L: 1.06 done manually Objective Last Vital Signs Temp 36.1 C L 01/24/24 06:52 Pulse 77 01/24/24 08:40 Resp 36 H 01/24/24 08:40 BP 120/89 01/24/24 08:40 Pulse Ox 95 01/24/24 08:40 Laboratory Results - last 24 hr 01/24/24 05:30 Sodium 138 Potassium 3.7 Chloride 107 Carbon Dioxide 21.4 Anion Gap 9.6 BUN 5 L Creatinine 0.7 Est GFR (CKD-EPI 2020) 108.62 Glucose 91 Hemoglobin A1c 4.7 Calcium 9.1 Triglycerides 59 Total Cholesterol 136 LDL Cholesterol, Calc 86 HDL Cholesterol 39 L PAWSS Have you Been Recently Intoxicated or Drunk Within the Last 30 days?: Yes Have you Ever Experienced Previous Episodes of Alcohol Withdrawal?: No Have you ever Experienced Withdrawal Seizures?: No Have you ever Experienced Delirium Tremens(DT)s?: No Have you ever undergone Alcohol Rehabilitation Treatment (i.e, inpt ot outpatient treatment programs)?: No Have you ever Experienced Blackouts?: No Have you ever Combined Alcohol with other Downers within the last 90 days?: No Have you ever Combined Alcohol with any other Substance of Abuse during the last 90 days?: No Positive Blood Alcohol level on Presentation? [PCS.BAL]: No Evidence of Increased Autonomic Activity (i.e. HR>120, tremor, sweating, agitation, nausea)?: No Result: 1 Time Spent with Patient Time Spent with Patient: <25 minutes Time was spent: preparing to see the patient(eg.review tests), obtaining and/or reviewing separately otained hiistory and counseling the patient
--- NOTE | 2024-01-24 11:30 | CMPROGNOTE_ITS ---
Date of service: 01/24/24 Time of Service: 11:30 Care Management Progress Note Progress Note Text Progress Note Text: Ericka was sitting up in bed, coloring when CM met with her. Ericka is polite, easily engages in conversation and expresses that she is eager to discharge back to her cousin Kayla's home when she is off supplemental oxygen. Discharge on Eliquis is essential. Per [facility], RX will be in stock tomorrow (free trial card is pending at the pharmacy). [facility] follow up will be with Dr. Regan. Discharge Potential Discharge Needs: PCP F/U Appt (No PCP, T doc Hospital Follow Up with Dr. Regan) Anticipated Barriers to Discharge: Medical Status Patient/Family Education Needs: Review discharge instructions, discuss Ask Me Three Transportation: Private vehicle Plan: Anticipate Ericka will return to the community once medically cleared. She currently does not have health insurance, therefore does not have prescription coverage. Per MD, she requires a prescription for Eliquis for a safe discharge. CM sent a referral to [facility] for insurance navigation and access to care. Ericka will transport via private vehicle by [facility] vs family/friend. She will follow up with the injection molding machine offbearer provider and will follow her discharge plan of care. CM will continue to follow. SDOH(Care Management) Screening Will the Patient Participate in the Screening?: Yes Do you worry about having a steady place to live?: no Problems where you live: no known problems In the past 12 months, have you had to go without electric, gas, oil or water in your home?: no Have you or anyone in your house had to go without enough food to eat?: no Has lack of transportation kept you from medical appointments or from doing things needed for daily living?: no Has anyone in your support network made you feel unsafe for any reason?: no Social Determinants of Health Comments(SDOH Details): Tuesday night last drink 1 beer. smokes 1/2 PPD
--- NOTE | 2024-01-24 12:25 | PGE_ITS ---
Date of Service Date of service: 01/24/24 Time of Service: 12:25 Assessment and Plan Assessment and plan (1) Pulmonary emboli: Status: Chronic Assessment and plan: -Upon admission DVT suspected, RLE ultrasound showing extensive right lower extremity DVT -Patient was initially on room air however, upon discovering she was placed on 3 L nasal cannula, CTA was ordered which showed extensive pulmonary embolic disease and right heart strain -Case was discussed with [facility] PE fellow 01/20 who agreed with initiating heparin drip, and checking proBNP and troponin, however unless other were significantly elevated, patient would not meet criteria for intervention -Transitioned heparine drip to apixaban 01/22 -Troponin mildly elevated when PE diagnosed, trended down -Stable, oxygen requirement down from 3 liters to 1 liter, but not stable off oxygen. Continue working with IS and mobilize. Qualifiers: Pulmonary embolism type: other Chronicity: acute Acute cor pulmonale presence: with acute cor pulmonale Qualified Code(s): I26.09 - Other pulmonary embolism with acute cor pulmonale (2) Acute respiratory failure with hypoxia: Status: Acute Assessment and plan: -Secondary to PEs as noted above (3) DVT (deep venous thrombosis): Status: Chronic Assessment and plan: -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 who was started on anticoagulation but this was not continued by the patient -See pulmonary emboli above -Ambulation associated with better outcomes once on therapy, encourage ambulatoin -compression therapy on right leg indefinitely to limit post-thrombotic pain once wound is dry enough. -Recurrent VTE, Dr. Hill raised concern of lupus, malar rash vs plethora from alcohol, at this point defer rheumatologic work up to outpatient. Pt reports this was done at [facility] previously, should get those records first. Qualifiers: DVT location: lower extremity Affected thrombotic vein of extremity: other lower extremity vein Chronicity: chronic Laterality: right Qualified Code(s): I82.591 - Chronic embolism and thrombosis of other specified deep vein of right lower extremity (4) Cellulitis of right lower extremity: Start date: 01/20/24 Status: Acute Assessment and plan: -Cellulitis without sepsis of the right lower extremity -Concern for pseudomonas clinically on admission, looks dry now and not clearly infected. Off vancomycin 01/22. Should finish a week of antibiotics. We don't have cultures. WBC improved. Continue cefepime for pseudomonal coverage while inpatient. (5) Alcohol abuse, daily use: Status: Chronic Assessment and plan: -CIWA protocol with oral Ativan, not significantly scoring. -We discussed this, she does not think her drinking is a problem, enjoys it, but accepts the level (a few beers a day) is unhealthy and she states she will think about it. (6) Depression: Status: Chronic Assessment and plan: Concern for depression but complicated by acute illness, alcohol use, and social stressors of recent move and end of relationship. She has a stable place to stay with her cousin, grew up in [place] and has family here. Struggling with sleep as well. Consider starting therapy prior to discharge with PCP follow up. Okay to offer zolpidem while inpatient but I wouldn't use as outpatient with alcohol use. Qualifiers: Depression Type: major depressive disorder Major depression recurrence: recurrent Active/Remission status: currently active Major depression episode s everity: moderate Qualified Code(s): F33.1 - Major depressive disorder, recurrent, moderate (7) Hypokalemia: Status: Acute Assessment and plan: mild, replaced orally, better today Subjective Subjective Patient reports: no new complaints, tolerating a regular diet and voiding w/o difficulty; denies diarrhea, nausea, vomiting or fever Interval history since last seen: 24hr: briefly titrated off O2, but was back on 1 liter within the hour, has been on 1 liter overnight. Desaturation into 80s on room air today. She feels okay. Has been using IS more. SOB is getting better. No chest pain. Exam Narrative Exam Narrative: Comfortable appearing female laying in bed and in no acute distress, ANO x 4, heart regular rhythm, lungs clear to auscultation bilaterally, normal effort at rest, no wheeze. Abdomen soft, nontender, nondistended. Extremities with trace edema on bilaterally, RLE hyperpigmented. Warm, cap refill <1 second in toes, no pain with ROM ankles. RLE wound now dry, see photos in surgical note. No redness spreading from edge of wound. Objective Last Vital Signs Temp 36.1 C L 01/24/24 06:52 Pulse 77 01/24/24 08:40 Resp 36 H 01/24/24 08:40 BP 120/89 01/24/24 08:40 Pulse Ox 93 01/24/24 11:51 Laboratory Results - last 24 hr 01/24/24 05:30 Sodium 138 Potassium 3.7 Chloride 107 Carbon Dioxide 21.4 Anion Gap 9.6 BUN 5 L Creatinine 0.7 Est GFR (CKD-EPI 2020) 108.62 Glucose 91 Hemoglobin A1c 4.7 Calcium 9.1 Triglycerides 59 Total Cholesterol 136 LDL Cholesterol, Calc 86 HDL Cholesterol 39 L PAWSS Have you Been Recently Intoxicated or Drunk Within the Last 30 days?: Yes Have you Ever Experienced Previous Episodes of Alcohol Withdrawal?: No Have you ever Experienced Withdrawal Seizures?: No Have you ever Experienced Delirium Tremens(DT)s?: No Have you ever undergone Alcohol Rehabilitation Treatment (i.e, inpt ot outpatient treatment programs)?: No Have you ever Experienced Blackouts?: No Have you ever Combined Alcohol with other Downers within the last 90 days?: No Have you ever Combined Alcohol with any other Substance of Abuse during the last 90 days?: No Positive Blood Alcohol level on Presentation? [PCS.BAL]: No Evidence of Increased Autonomic Activity (i.e. HR>120, tremor, sweating, agitation, nausea)?: No Result: 1 Time Spent with Patient Time Spent with Patient: 35-49 minutes Time was spent: preparing to see the patient(eg.review tests), obtaining and/or reviewing separately otained hiistory, ordering medications,tests, procedures, referring, communicating with other health care transition mgr, indepentently interpreting results, counseling the patient and care coordination
[2024-01-25] VITALS (9 sets, daily range): BP systolic 112–121; BP diastolic 71–77; PULSE 64–94; RESP 13–29; O2SAT 91–98
[2024-01-25] MEDS: CEFEPIME 2 GM in Normal Saline 100 ML IVPB (06:24)
[2024-01-25] MEDS: Apixaban 5 MG TAB 10 MG PO (08:12)
[2024-01-25] MEDS: Thiamine 100 MG TAB PO (08:12)
[2024-01-25] MEDS: Folic Acid 1 MG TAB PO (08:13)
[2024-01-25] MEDS: Multivitamin TAB 1 TAB PO (08:13)
[2024-01-25] MEDS: Normal Saline Flush 10 ML SYR IVP (08:15)
--- NOTE | 2024-01-25 09:18 | PDOC.CMPRO ---
Date of service: 01/25/24 Time of Service: 09:18 Care Management Progress Note Progress Note Text Progress Note Text: Ericka is admitted to the ICU for monitoring and treatment of a PE, Hypoxia and RLL cellulites. Discharge home today is anticipated, if stable on RA. Tdoc follow up will be scheduled with Dr. Regan. Dony [facility] RN for wound care, Dr. Rivera agrees to follow orders until until she is able to establish care with a PCP. New RX for Eliquis is ready for pickup, $0 copay and pts Medicaid is now active. Will follow up with [facility] from [facility] after discharge. Discharge Potential Discharge Needs: PCP F/U Appt (Tdoc follow up. Needs to establish care with a local PCP. ) Anticipated Barriers to Discharge: Medical Status Patient/Family Education Needs: Review discharge instructions, discuss Ask Me Three Transportation: Private vehicle Plan: Discharge home via private vehicle with family. Hospital follow up will be made with Dr. Regan (T-doc schedule.) Dony HERR[facility] RN for wound care, Dr. Rivera will follow orders until local PCP is established. RX for Eliquis is ready, $0 copay. Will follow up with [facility] from [facility]. SDOH(Care Management) Screening Will the Patient Participate in the Screening?: Yes Do you worry about having a steady place to live?: no Problems where you live: no known problems In the past 12 months, have you had to go without electric, gas, oil or water in your home?: no Have you or anyone in your house had to go without enough food to eat?: no Has lack of transportation kept you from medical appointments or from doing things needed for daily living?: no Has anyone in your support network made you feel unsafe for any reason?: no Social Determinants of Health Comments(SDOH Details): Tuesday night last drink 1 beer. smokes 1/2 PPD
--- NOTE | 2024-01-25 14:30 | CHAPLAIN ---
Ericka was up in the chair when I visited this afternoon. She said she is hoping to be discharged today and is eager to return home. I explained my role and offered support.
--- NOTE | 2024-01-25 15:16 | W.PM.DS.N ---
Date of service: 01/25/24 Time of Service: 15:17 DS: Diagnosis Discharge Diagnosis (1) Edema of right lower leg due to venous stasis: Status: Acute (2) Venous stasis: Status: Acute (3) Atherosclerosis: Status: Acute (4) Smoker: Status: Acute (5) Venous insufficiency of right leg: Status: Acute (6) Thrombophlebitis leg superficial: Status: Acute Discharge Plan Disposition Patient Disposition: Home W/Home Health Services Condition: Fair Discharge Details Reason For Visit: Cellulitis right lower extremity.... Admit Date/Time: 01/20/24 23:15 Admit Provider: Gallo Robin Attending Provider: Gallo Robin Primary Care Provider: None,None Hospital Course Hospital Course: 43 yo F with history of unprovoked DVT not on anticoagulation, smoking, daily alcohol use, and RLE venous insufficiency presented with pain and swelling in a wound in her right lower leg as well as shortness of breath. She was admitted and started on cefepime for the infection because it smelled like pseudomonas initially in combination with vancomycin, which was discontinued on 01/22. Wound care was provided. LE doppler was ordered on admission and showed DVT. She was started on heparin drip. She was initially not hypoxic on presentation, but became so overnight the first night. CTA did show pulmonary emboli with signs of right heart strain. She did have mild elevation of troponin and BNaP associated with this. Case reviewed with [facility] fellow who did not feel she was a candidate for invasive procedure/thrombolytic therapy. She was on heparin drip for two days, then transitioned to apixaban. She stated she had a hypercoagulability work up at [facility] after her previous DVT. She did have redness to her cheeks possibly c/w malar rash, raising concern for antiphospholipid antibody syndrome or lupus anticoagulant a/w SLE, though she did not have other findings a/w SLE. Consideration of repeating anticoagulation/rheumatologic work up was deferred to outpatient. Her alcohol use was discussed. She was ambivalent about stopping, but will consider cutting back. Smoking cessation discussed. Surgery was consulted regarding the wound and recommended ABIs. A1c and lipid screens were done and were reassuring other then mildly low HDL at 39. A1c was 4.7%, LDL was 86 and TC 136 not on therapy. Home Meds and New Rx's Prescriptions: New Eliquis 5 mg tablet See Rx Instructions .ROUTE .COMPLEX Qty: 190 0RF Rx Instructions: 10mg po BID for 5 more days, then one tab po BID Discharge Instructions Instructions: Pulmonary Embolism (Blood Clot in the Lungs) (DC) Additional Instructions: Take medications as prescribed. Recommend complete and total cessation of tobacco. Follow up with Dr. Regan at [facility] as scheduled Referrals: Claudia Gonzales MD [ [facility] STAFF PHYSICIAN] - 02/03/24 10:00 am Activity:: Activity as Tolerated Equipment/Supplies:: No Equipment Needed Diet:: As Tolerated Discharge Orders Discharge Orders: Discharge Order (Routine); Ordered 01/25/24 Ordered By: Carlos Whiteside DS: Summary Summary Time spent discussing smoking cessation with patient: more than 10 minutes Time Spent with Patient providing and/or coordinating discharge services: Greater than 30 minutes Status at Discharge Functional status at discharge: independent ambulation Overall status at discharge: patient is back to baseline Mental Status: mental status grossly normal Speech and Movement: speech and movement normal Mood: congruent mood Affect: normal affect Quality:SDOH Health Related Social Needs: No Data to Display Exam Narrative Exam Narrative: Comfortable appearing female laying in bed and in no acute distress, ANO x 4, heart regular rhythm, lungs clear to auscultation bilaterally, normal effort at rest, no wheeze. Abdomen soft, nontender, nondistended. Extremities with trace edema on bilaterally, RLE hyperpigmented. Warm, cap refill <1 second in toes, no pain with ROM ankles. RLE wound now dry, see photos in surgical note. No redness spreading from edge of wound. Exam per Dr. Rivera who physically saw the patient today Psych Mental Status: mental status grossly normal Speech and Movement: speech and movement normal Mood: congruent mood Affect: normal affect DS: Data Vitals/I&O Vitals and I&O: Vital Signs Temperature 36.1 C L 01/24/24 06:52 Temperature Source Temporal Artery Scan 01/24/24 00:30 Pulse 86 01/25/24 13:51 Pulse Rhythm Regular 01/21/24 00:46 Pulse 85 01/25/24 14:13 Respiratory Rate 29 H 01/25/24 14:13 Respiratory Effort Incrsd Work of Breathing 01/21/24 22:25 Respiratory Depth Shallow 01/21/24 22:25 Respiratory Pattern Normal 01/21/24 22:25 Blood Pressure 121/77 01/25/24 14:13 Blood Pressure Mean 88 01/25/24 14:13 Pulse Oximetry 95 01/25/24 14:13 Oxygen Delivery Method Room Air 01/25/24 10:15 Oxygen Flow Rate 0 01/25/24 10:15 Pain Level 0 01/22/24 20:34 Comment Recovery to 90% SPO2 per telemetry/ear probe on remote device post-titration of KVNG. notified of increased O2 requirement. 01/21/24 21:15 Comment Second check for BP 01/22/24 18:04 Intake & Output 01/24/24 01/25/24 01/25/24 23:59 11:59 23:59 Intake Total 100 / 680 510 / 510 Output Total 650 / 1550 850 / 850 Balance -550 / -870 -340 / -340 Weight 103.6 kg Intake: IV 100 / 200 210 / 210 Oral 300 / 300 Output: Urine 650 / 1550 850 / 850 Other: Urine Color Yellow Yellow Urine Appearance Clear Clear Urine Odor Normal Normal Comment Mixed with stool Volume estimated - urine mixed w/ stool. Stool Size Moderate Moderate Stool Characteristics Formed Soft Brown PFSH All Active Problems (Updated 01/25/24 @ 15:16 by Carlos Whiteside MD) Thrombophlebitis leg superficial (Acute) Venous insufficiency of right leg (Acute) Smoker (Acute) Atherosclerosis (Acute) Venous stasis (Acute) Edema of right lower leg due to venous stasis (Acute) Hypokalemia (Acute) Acute respiratory failure with hypoxia (Acute) Pulmonary emboli (Chronic) Alcohol dependence, daily use (Chronic) Depression (Chronic) DVT (deep venous thrombosis) (Chronic) Alcohol abuse, daily use (Chronic) Cellulitis of right lower extremity (Acute) Social History Smoking/Tobacco Use Status: Current every day Tobacco Type: cigarettes Smoking risk assessment performed?: Yes Alcohol Intake: current Alcohol Intake frequency: 0-2 drinks per day Drug use: Never Substance use type: does not use Housing: house Do you feel safe at home: Yes Do you feel safe in your relationship?: Yes Time Spent with Patient Time Spent with Patient: <45 minutes Time was spent: preparing to see the patient(eg.review tests), obtaining and/or reviewing separately otained hiistory, ordering medications,tests, procedures, referring, communicating with other health health care recruiter, indepentently interpreting results, counseling the patient and care coordination
--- NOTE | 2024-01-25 15:25 | PDOC.HHF2F_ITS ---
Home Health Referral Home Health Orders Clinical synopsis of why skilled professionals are needed: Needs wound care Medical diagnosis necessitation home health referral: Venous stasis and cellulitis RLE Registered Nurse: Check all that apply Assess wound for signs and symptoms of infection, instruct on wound care and/or provide skilled wound care consisting of: evaluation by RN and dressing changes Home Bound Status Assistance of another person (Describe assistance and medical necessity): wound Describe why leaving home would require a considerable and taxing effort: Other (wound care) Encounter Date and Reason: I certify that a FTF encounter for this patient was performed on January 25, 2024 and that such encounter was related to the primary reason the patient requires home health services. The encounter was conducted in the following manner: * By me as the certifying physician, SPEECH PATHOLOGIST ASSISTANT, PA or * By an inpatient physician, SPEECH PATHOLOGIST ASSISTANT or PA during an inpatient stay who communicated findings to me, Certification And Authentication I certify that I composed the above information based on my clinical judgment relating to this patient's medical condition and, if applicable, clinical findings communicated to me by the NPP or inpatient physician who performed the FTF encounter. Name of Provider that will be monitoring home health services: Parmjit Rivera
--- NOTE | 2024-01-25 15:59 | PDOC.CMDIS ---
Date of service: 01/25/24 Time of Service: 15:59 Care Management Discharge Plan Reason for Hospitalization: Hypoxia, Cellulites, PE Discharge Plan: Discharge home via private vehicle with family. Hospital follow up will be made with Dr. Gonzales (T-doc schedule.) Dony [facility] RN for wound care, Dr. Rivera will follow orders until local PCP is established. RX for Eliquis is ready, $0 copay. Will follow up with [facility] from [facility]. Patient/Family Education Needs: Review discharge instructions, discuss Ask Me Three Services Needed at Discharge: Home Health Care Services (Dony [facility] RN for wound care.) SDOH Health Related Social Needs: No Data to Display
== END 2024-01-25 16:55 | disposition home health service (06) | DRG 299 ==
LOC: ER 01-21 00:07 → MS 01-21 00:48 → ICU 01-21 22:05
PROVIDERS: Family Medicine; Surgery; Admitting Provider Family Medicine; Emergency Provider Emergency Medicine; Visit Provider Family Medicine
DX: I82.411 Acute embolism and thrombosis of right femoral vein (principal); I26.09 Other pulmonary embolism with acute cor pulmonale; J96.01 Acute respiratory failure with hypoxia; L03.115 Cellulitis of right lower limb; F33.1 Major depressive disorder, recurrent, moderate; L97.818 Non-pressure chronic ulcer of other part of right lower leg with other specified severity; I82.431 Acute embolism and thrombosis of right popliteal vein; F10.20 Alcohol dependence, uncomplicated; E87.6 Hypokalemia; I87.2 Venous insufficiency (chronic) (peripheral); G54.0 Brachial plexus disorders; Z86.718 Personal history of other venous thrombosis and embolism; F17.210 Nicotine dependence, cigarettes, uncomplicated; Z89.022 Acquired absence of left finger(s); D72.829 Elevated white blood cell count, unspecified; I51.89 Other ill-defined heart diseases; I70.90 Unspecified atherosclerosis
CPT/HCPCS: 00123; 36415; 71275; 80048; 80053; 80061; 80307; 84145; 85027; 85652; 93005; 96365; 96366; 96367; 99285; J1650; 71046; 73590; 80202; 80320; 81003; 81015; 81025; 83036; 83735; 83880; 84100; 84484; 85025; 85730; 86140; 93010; 93971; 94760; 99223; 99232; 99233; 99239; J0692; J1171; J1644; J3370; J3372; J3490